=== PATIENT | female | born 1950 | race Caucasian/White ===

== ENCOUNTER 2019-12-04 11:31 | Observation (INO) | payer BC, MEDICARE ==
[2019-12-04] MEDS ORDERED: SODIUM CHLORIDE 0.9% 1,000 ML IV STA (11:46)
[2019-12-04 12:19] LABS: Basophils % (A) 0 %; Eosinophils # (A) 0.1 k/uL (0-0.7); Eosinophils % (A) 1 %; HCT 40.2 % (34.0-46.0); HGB 12.6 gm/dL (11.4-16.0); Hypochromasia Slight; Lymphocytes # (A) 1.9 k/uL (1.0-4.8); Lymphocytes % (A) 21 %; MCHC 31.3 g/dL (31.0-37.0); MCV 98.8 fL (80.0-100.0); Mean Platelet Volume 9.4; Monocytes # (A) 0.3 k/uL (0-1.0); Monocytes % (A) 4 %; Neutrophils # (A) 6.5 k/uL (1.3-7.7); Neutrophils % (A) 72 %; Platelet Count 211 k/uL (150-450); RBC 4.07 m/uL (3.80-5.40); RDW 13.1 % (11.5-15.5)
--- NOTE | 2019-12-04 12:24 | XR ---
EXAMINATION TYPE: XR chest 2V DATE OF EXAM: 12/04/2019 COMPARISON: NONE HISTORY: Difficulty breathing, shortness of breath TECHNIQUE: Frontal and lateral views of the chest are obtained. FINDINGS: There are prominent lung volumes with flattening the hemidiaphragms consistent with underly ing COPD. Aorta is dense. There is no focal air space opacity, pleural effusion, or pneumothorax see n. The cardiac silhouette size is within normal limits. The osseous structures are intact, postop change noted to the right humerus. IMPRESSION: No acute cardiopulmonary process.
[2019-12-04 12:34] LABS: ALT 21 U/L (4-34); AST 26 U/L (14-36); African American GFR (CKD) >90 (>60 ml/min/1.73 sqM); Albumin 3.7 g/dL (3.5-5.0); Alkaline Phosphatase 69 U/L (38-126); Anion Gap 5 mmol/L; Blood Urea Nitrogen 13 mg/dL (7-17); Calcium 8.8 mg/dL (8.4-10.2); Carbon Dioxide 28 mmol/L (22-30); Chloride 108 mmol/L (98-107); Glucose 96 mg/dL (74-99); Magnesium 2.2 mg/dL (1.6-2.3); Non-African American GFR(CKD) >90 (>60 ml/min/1.73 sqM); Potassium 5.1 mmol/L (3.5-5.1); Sodium 141 mmol/L (137-145); Total Bilirubin 0.6 mg/dL (0.2-1.3); Total Protein 6.2 g/dL (6.3-8.2)
[2019-12-04 12:39] LABS: INR 0.9 (<1.2); Prothrombin Time 9.9 sec (9.0-12.0)
[2019-12-04 12:48] LABS: Partial Thromboplastin Time 20.8 sec (22.0-30.0)
[2019-12-04] MEDS ORDERED: IPRATROPIUM-ALBUTEROL 3 ML NEB INHALATION STA (13:19)
--- NOTE | 2019-12-04 13:24 | ED ---
SOB HPI - General Chief Complaint: Shortness of Breath Stated Complaint: RONNIE Time Seen by Provider: 12/04/19 11:31 Source: patient, EMS, RN notes reviewed Mode of arrival: EMS Limitations: no limitations - History of Present Illness Initial Comments: This is a 69-year-old female history of COPD who presents with complaints of one week of progressively worsening shortness of breath. She states she ran out of her medications about a week ago as is gotten progressively more short of breath including exertional dyspnea. She describes the issues as chest tightness difficulty breathing exertional dyspnea. No overt fevers chills or sweats. MD Complaint: shortness of breath - Related Data Home Medications Medication Instructions Recorded Confirmed Aspirin EC [Ecotrin Low Dose] 81 mg PO DAILY 12/04/19 12/04/19 Atorvastatin [Lipitor] 80 mg PO HS 12/04/19 12/04/19 Carvedilol [Coreg] 6.25 mg PO BID 12/04/19 12/04/19 Enalapril Maleate [Vasotec] 2.5 mg PO DAILY 12/04/19 12/04/19 Fluticasone/Umeclidin/Vilanter 1 puff INHALATION RT-DAILY 12/04/19 12/04/19 [Trelegy Ellipta 100-62.5-25] Allergies Allergy/AdvReac Type Severity Reaction Status Date / Time acetaminophen [From Tylenol] Allergy Rash/Hives Verified 12/04/19 12:29 Review of Systems ROS Statement: Those systems with pertinent positive or pertinent negative responses have been documented in the HPI. ROS Other: All systems not noted in ROS Statement are negative. Past Medical History Past Medical History: Chest Pain / Angina, COPD, Myocardial Infarction ([place]) History of Any Multi-Drug Resistant Organisms: None Reported Past Surgical History: Breast Surgery, Section, Cholecystectomy, Orthopedic Surgery Past Psychological History: No Psychological Hx Reported Smoking Status: Current every day smoker, Light tobacco smoker, Second hand smoke exposure Past Alcohol Use History: None Reported Past Drug Use History: None Reported General Exam - General Exam Comments Initial Comments: This is a well-developed sec appearing female who is awake alert oriented 3 Limitations: no limitations General appearance: alert, anxious, in distress Head exam: Present: atraumatic, normocephalic, normal inspection Eye exam: Present: normal appearance, PERRL, EOMI. Absent: scleral icterus, conjunctival injection, periorbital swelling ENT exam: Present: mucous membranes dry Neck exam: Present: normal inspection, full ROM, other (No stridor JVD or bruits). Absent: tenderness, meningismus, lymphadenopathy Respiratory exam: Present: wheezes, accessory muscle use, decreased breath sounds. Absent: respiratory distress, rales, rhonchi, stridor Cardiovascular Exam: Present: regular rate, normal rhythm, normal heart sounds. Absent: systolic murmur, diastolic murmur, rubs, gallop, clicks GI/Abdominal exam: Present: soft, normal bowel sounds. Absent: distended, tenderness, guarding, rebound, rigid Extremities exam: Present: normal inspection, full ROM, normal capillary refill. Absent: tenderness, pedal edema, joint swelling, calf tenderness Back exam: Present: normal inspection Neurological exam: Present: alert, oriented X3, CN II-XII intact Psychiatric exam: Present: normal affect, normal mood Skin exam: Present: warm, dry, intact, normal color. Absent: rash Course Vital Signs 12/04/19 12/04/19 12/04/19 11:49 12:00 13:32 Temperature 97.6 F Pulse Rate 70 57 L Respiratory 20 20 18 Rate Blood Pressure 135/88 112/73 O2 Sat by Pulse 97 95 Oximetry - Reevaluation(s) Reevaluation #1: 12/04/19 13:24 The patient did say she has some relief from the medication rendered by [facility]. Medical Decision Making - Medical Decision Making Reevaluation the patient finds that she still dyspneic though somewhat improved. After discussion with her and family the patient be admitted I did discuss case with Dr. Eagle the presentation is consistent with a COPD exacerbation. - Lab Data Result diagrams: 12/04/19 12:00 12/04/19 12:00 Lab Results 12/04/19 12/04/19 12/04/19 Range/Units 12:00 12:00 12:00 WBC 9.0 (3.8-10.6) k/uL RBC 4.07 (3.80-5.40) m/uL Hgb 12.6 (11.4-16.0) gm/dL Hct 40.2 (34.0-46.0) % MCV 98.8 (80.0-100.0) fL MCH 31.0 (25.0-35.0) pg MCHC 31.3 (31.0-37.0) g/dL RDW 13.1 (11.5-15.5) % Plt Count 211 (150-450) k/uL Neutrophils % 72 % Lymphocytes % 21 % Monocytes % 4 % Eosinophils % 1 % Basophils % 0 % Neutrophils # 6.5 (1.3-7.7) k/uL Lymphocytes # 1.9 (1.0-4.8) k/uL Monocytes # 0.3 (0-1.0) k/uL Eosinophils # 0.1 (0-0.7) k/uL Basophils # 0.0 (0-0.2) k/uL Hypochromasia Slight PT 9.9 (9.0-12.0) sec INR 0.9 (<1.2) APTT 20.8 L (22.0-30.0) sec Sodium 141 (137-145) mmol/L Potassium 5.1 (3.5-5.1) mmol/L Chloride 108 H (98-107) mmol/L Carbon Dioxide 28 (22-30) mmol/L Anion Gap 5 mmol/L BUN 13 (7-17) mg/dL Creatinine 0.54 (0.52-1.04) mg/dL Est GFR (CKD-EPI)AfAm >90 (>60 ml/min/1.73 sqM) Est GFR (CKD-EPI)NonAf >90 (>60 ml/min/1.73 sqM) Glucose 96 (74-99) mg/dL Plasma Lactic Acid Rosendo (0.7-2.0) mmol/L Calcium 8.8 (8.4-10.2) mg/dL Magnesium 2.2 (1.6-2.3) mg/dL Total Bilirubin 0.6 (0.2-1.3) mg/dL AST 26 (14-36) U/L ALT 21 (4-34) U/L Alkaline Phosphatase 69 (38-126) U/L Troponin I (0.000-0.034) ng/mL NT-Pro-B Natriuret Pep pg/mL Total Protein 6.2 L (6.3-8.2) g/dL Albumin 3.7 (3.5-5.0) g/dL 07/12/04/19 12/04/19 Range/Units 12:00 12:00 12:00 WBC (3.8-10.6) k/uL RBC (3.80-5.40) m/uL Hgb (11.4-16.0) gm/dL Hct (34.0-46.0) % MCV (80.0-100.0) fL MCH (25.0-35.0) pg MCHC (31.0-37.0) g/dL RDW (11.5-15.5) % Plt Count (150-450) k/uL Neutrophils % % Lymphocytes % % Monocytes % % Eosinophils % % Basophils % % Neutrophils # (1.3-7.7) k/uL Lymphocytes # (1.0-4.8) k/uL Monocytes # (0-1.0) k/uL Eosinophils # (0-0.7) k/uL Basophils # (0-0.2) k/uL Hypochromasia PT (9.0-12.0) sec INR (<1.2) APTT (22.0-30.0) sec Sodium (137-145) mmol/L Potassium (3.5-5.1) mmol/L Chloride (98-107) mmol/L Carbon Dioxide (22-30) mmol/L Anion Gap mmol/L BUN (7-17) mg/dL Creatinine (0.52-1.04) mg/dL Est GFR (CKD-EPI)AfAm (>60 ml/min/1.73 sqM) Est GFR (CKD-EPI)NonAf (>60 ml/min/1.73 sqM) Glucose (74-99) mg/dL Plasma Lactic Acid Rosendo 1.0 (0.7-2.0) mmol/L Calcium (8.4-10.2) mg/dL Magnesium (1.6-2.3) mg/dL Total Bilirubin (0.2-1.3) mg/dL AST (14-36) U/L ALT (4-34) U/L Alkaline Phosphatase (38-126) U/L Troponin I <0.012 (0.000-0.034) ng/mL NT-Pro-B Natriuret Pep 417 pg/mL Total Protein (6.3-8.2) g/dL Albumin (3.5-5.0) g/dL - EKG Data -: EKG Interpreted by Me EKG shows normal: sinus rhythm (Sinus rhythm a 65. Interval 126 QRS 92 QT since QTC 396/411 low-voltage QRS evidence of old inferior changes) - Radiology Data Radiology results: report reviewed (I did review the imaging and report no acute findings.), image reviewed Disposition Clinical Impression: Acute exacerbation of chronic obstructive pulmonary disease Disposition: ADMITTED IP TO THIS HOSP Condition: Fair Referrals: Nonstaff,Physician [Primary Care Provider] - 1-2 days
[2019-12-04] MEDS: SODIUM CHLORIDE 0.9% 1,000 ML IV SCH (14:07)
--- NOTE | 2019-12-04 15:20 | P.HPIM ---
History of Present Illness H&P Date: 12/04/19 This is a 69-year-old female with past medical history noted below significant for underlying COPD who presented to the emergency room with worsening shortness of breath and dyspnea. Patient said that she woke up this morning with severe shortness of breath. She reported that she ran out of her inhalers a while ago and usually uses oxygen at home as needed. She did not check her oxygen level at home but used the oxygen for symptomatic relief. She had the oxygen up to 6 L with minimal relief. She denies any chest pain. She is having a nonproductive cough. No fevers or chills. No recent sick contact. Patient called EMS and was given IV Solu-Medrol in route. She was evaluated in the ER and was found to have acute COPD exacerbation and be placed on observation for further management. Patient reported feeling a lot better at the time of my evaluation. She denies any chest pain. She continued to smoke 3 cigarettes per day Review of Systems Review of system: 14 points review of systems were obtained and were negative except to what were mentioned in the HPI. Past Medical History Past Medical History: Asthma, Chest Pain / Angina, COPD, Hyperlipidemia, Hypertension, Myocardial Infarction (PR), Osteoarthritis (OA) Additional Past Medical History / Comment(s): Stress induced asthma, pt states told she had a PR approximately 5-7 yrs ago by EKG, cardiac cath 2019 in [place]-told one vessel 100% occluded, UTI, arthritis bilateral hands. Last Myocardial Infarction Date:: unkn History of Any Multi-Drug Resistant Organisms: None Reported Past Surgical History: Breast Surgery, Section, Cholecystectomy, Orthopedic Surgery Additional Past Surgical History / Comment(s): Benign L breast tumor removed, R arm fracture with hardware, cardiac cath 2019 in [place]-told one vessel 100% occluded. Past Anesthesia/Blood Transfusion Reactions: No Reported Reaction Smoking Status: Current every day smoker - Past Family History Father Family Medical History: CVA/TIA Additional Family Medical History / Comment(s): Father of a stroke at the age of 57yrs. Mother Family Medical History: Cancer, COPD Additional Family Medical History / Comment(s): Mother was a smoker. She of gallbladder cancer at the age of 86 yrs. Medications and Allergies Home Medications Medication Instructions Recorded Confirmed Type Aspirin EC [Ecotrin Low Dose] 81 mg PO DAILY 12/04/19 12/04/19 History Atorvastatin [Lipitor] 80 mg PO HS 12/04/19 12/04/19 History Carvedilol [Coreg] 6.25 mg PO BID 12/04/19 12/04/19 History Enalapril Maleate [Vasotec] 2.5 mg PO DAILY 12/04/19 12/04/19 History Fluticasone/Umeclidin/Vilanter 1 puff INHALATION RT-DAILY 12/04/19 12/04/19 History [Trelegy Ellipta 100-62.5-25] Allergies Allergy/AdvReac Type Severity Reaction Status Date / Time acetaminophen [From Tylenol] Allergy Rash/Hives Verified 12/04/19 12:29 Physical Exam Vitals: Vital Signs Temp Pulse Pulse Resp BP BP Pulse Ox 12/04/19 15:00 97.3 F L 66 16 133/72 97 12/04/19 14:04 98.1 F 61 20 130/75 97 12/04/19 13:55 66 12/04/19 13:46 59 L 12/04/19 13:32 57 L 18 112/73 95 12/04/19 12:00 20 12/04/19 11:49 97.6 F 70 20 135/88 97 Intake and Output 12/04/19 12/04/19 12/04/19 06:59 14:59 22:59 Other: Weight 65.317 kg General: The patient is awake and alert, in no distress Eye: there is normal conjunctiva bilaterally. Neck: The neck is supple, there is no JVD. Cardiovascular: Normal S1-S2, no S3-S4, no murmurs. Respiratory: Lungs slightly diminished with mild end expiratory wheezing Gastrointestinal: Abdomen is soft, nontender Musculoskeletal: There is no pedal edema. Neurological:. Speech is normal. Skin: Skin is warm and dry Results CBC & Chem 7: 12/04/19 12:00 12/04/19 12:00 Labs: Abnormal Lab Results - Last 24 Hours (Table) 12/04/19 12/04/19 Range/Units 12:00 12:00 APTT 20.8 L (22.0-30.0) sec Chloride 108 H (98-107) mmol/L Total Protein 6.2 L (6.3-8.2) g/dL Thrombosis Risk Factor Assmnt - Choose All That Apply Any of the Below Risk Factors Present?: Yes Each Factor Represents 1 point: Abnormal pulmonary function (COPD), Obesity (BMI >25), Serious lung disease incl. pneumonia (< 1month) Other Risk Factors: Yes Each Risk Factor Represents 2 Points: Age 61-74 years Other congenital or acquired thrombophilia - If yes, enter type in comment: No Thrombosis Risk Factor Assessment Total Risk Factor Score: 5 Thrombosis Risk Factor Assessment Level: High Risk Assessment and Plan Assessment: 1. Acute COPD exacerbation, I would continue IV Solu-Medrol 40 mg every 8 hours. DuoNeb's every 4 hours. Chest x-ray showed no acute findings. 2. Acute on chronic hypoxic respiratory failure: Wean off O2 as tolerated for O2 sats greater than 88% 3. Tobacco abuse: Counseled extensively to quit. 4. Hyperlipidemia on Lipitor 5. Essential hypertension: Blood pressure within acceptable range
[2019-12-04 16:34] LABS: Glucose,Whole Blood 136 mg/dL (75-99)
[2019-12-04] MEDS: methylPREDNISolone SOD SUCCI 40 MG/ML 1 ML VIAL IV SCH ×2 (17:12→23:49)
[2019-12-04] MEDS: carvediloL 6.25 MG TAB PO SCH (17:12)
[2019-12-04] MEDS ORDERED: methylPREDNISolone SOD SUCCI 125 MG/2 ML VIAL IV SCH (18:00)
[2019-12-04] MEDS: IPRATROPIUM-ALBUTEROL 3 ML NEB INHALATION SCH ×2 (19:02→19:08)
[2019-12-04 20:29] LABS: Glucose,Whole Blood 160 mg/dL (75-99)
[2019-12-04] MEDS ORDERED: ATORVASTATIN 80 MG TAB PO SCH (21:00)
[2019-12-05] MEDS: IPRATROPIUM-ALBUTEROL 3 ML NEB INHALATION PRN ×2 (00:25→03:30)
[2019-12-05] MEDS: SODIUM CHLORIDE 0.9% 1,000 ML IV SCH (04:07)
[2019-12-05 06:35] LABS: Glucose,Whole Blood 140 mg/dL (75-99)
[2019-12-05] MEDS: IPRATROPIUM-ALBUTEROL 3 ML NEB INHALATION SCH ×2 (07:17→11:26)
[2019-12-05] MEDS: methylPREDNISolone SOD SUCCI 40 MG/ML 1 ML VIAL IV SCH ×2 (07:34→07:47)
[2019-12-05] MEDS ORDERED: SYMBICORT 80-4.5 MCG INHALER INHALATION SCH (08:00)
[2019-12-05 08:27] VITALS: BP 111/58; RESP 20; TEMP 97.5
[2019-12-05] MEDS: carvediloL 6.25 MG TAB PO SCH (08:31)
[2019-12-05] MEDS ORDERED: lisinopriL 5 MG TAB PO SCH (09:00)
[2019-12-05] MEDS ORDERED: ASPIRIN 81 MG PO SCH (09:00)
--- NOTE | 2019-12-05 09:54 | P.DS ---
Providers Date of admission: 12/04/19 13:46 Expected date of discharge: 12/05/19 Attending physician: Maikol Sanchez Primary care physician: Physician Nonstaff Hospital Course: This is a 69-year-old female with past medical history noted below who presented to the emergency room for worsening shortness of breath. Patient was evaluated and placed on observation for further management of her medical problems noted below. 1. Acute COPD exacerbation, improved with IV steroids and bronchodilators. Chest x-ray showed no acute findings. Would finish 3 days course of prednisone at home. Prescription given for DuoNeb's to be used at home. 2. Acute on chronic hypoxic respiratory failure: On 2 L of oxygen at home as needed 3. Tobacco abuse: Counseled extensively to quit. 4. Hyperlipidemia on Lipitor 5. Essential hypertension: Blood pressure within acceptable range Patient will be discharged home in a stable condition. For further details about this hospitalization please refer to the electronic chart. Patient Condition at Discharge: Fair Plan - Discharge Summary Discharge Rx Participant: No New Discharge Prescriptions: New predniSONE [Deltasone] 40 mg PO DAILY #6 tab Ipratropium-Albuterol Nebulize [Duoneb 0.5 mg-3 mg/3 ml Soln] 3 ml INHALATION RT-QID PRN #120 ml PRN Reason: Shortness Of Breath Continue Enalapril Maleate [Vasotec] 2.5 mg PO DAILY Carvedilol [Coreg] 6.25 mg PO BID Aspirin EC [Ecotrin Low Dose] 81 mg PO DAILY Atorvastatin [Lipitor] 80 mg PO HS Fluticasone/Umeclidin/Vilanter [Trelegy Ellipta 100-62.5-25] 1 puff INHALATION RT-DAILY #1 device Discharge Medication List Aspirin EC [Ecotrin Low Dose] 81 mg PO DAILY 12/04/19 [History] Atorvastatin [Lipitor] 80 mg PO HS 12/04/19 [History] Carvedilol [Coreg] 6.25 mg PO BID 12/04/19 [History] Enalapril Maleate [Vasotec] 2.5 mg PO DAILY 12/04/19 [History] Fluticasone/Umeclidin/Vilanter [Trelegy Ellipta 100-62.5-25] 1 puff INHALATION RT-DAILY #1 device 12/05/19 [Rx] Ipratropium-Albuterol Nebulize [Duoneb 0.5 mg-3 mg/3 ml Soln] 3 ml INHALATION RT-QID PRN #120 ml 12/05/19 [Rx] predniSONE [Deltasone] 40 mg PO DAILY #6 tab 12/05/19 [Rx] Follow up Appointment(s)/Referral(s): Nonstaff,Physician [Primary Care Provider] - 1-2 days Discharge Disposition: HOME SELF-CARE
[2019-12-05 11:38] VITALS: PULSE 80
[2019-12-05 11:38] LABS: Glucose,Whole Blood 123 mg/dL (75-99)
== END 2019-12-05 12:35 | disposition home or self-care (01) ==
LOC: EC 11:31 → 1SOBS 13:46
PROVIDERS: ADMIT Internal Medicine; ATTEND Internal Medicine
DX: J44.1 Chronic obstructive pulmonary disease with (acute) exacerbation (principal); J96.21 Acute and chronic respiratory failure with hypoxia; I25.2 Old myocardial infarction; F17.210 Nicotine dependence, cigarettes, uncomplicated; E78.5 Hyperlipidemia, unspecified; I10 Essential (primary) hypertension; M19.042 Primary osteoarthritis, left hand; M19.041 Primary osteoarthritis, right hand; Z79.82 Long term (current) use of aspirin; Z79.899 Other long term (current) drug therapy; Z90.49 Acquired absence of other specified parts of digestive tract; E66.9 Obesity, unspecified; Z68.26 Body mass index [BMI] 26.0-26.9, adult; Z87.01 Personal history of pneumonia (recurrent); Z87.440 Personal history of urinary (tract) infections; Z80.0 Family history of malignant neoplasm of digestive organs; Z82.3 Family history of stroke; Z82.5 Family history of asthma and other chronic lower respiratory diseases; Z20.828 Contact with and (suspected) exposure to other viral communicable diseases
CPT/HCPCS: 96361 ×3; 96374; 96376 ×2; 99285; 36415; 94640 ×4; 93005; 83880; 80053; 83605; 83735; 84484; 85025; 85610; 85730; 71046; G0378 ×2; U0003; J2920 ×2

== ENCOUNTER 2023-04-30 15:12 | Inpatient (IN) | payer MEDICARE ==
[2023-04-30] MEDS ORDERED: IPRATROPIUM-ALBUTEROL 3 ML NEB INHALATION STA ×2 (15:27→16:42)
--- NOTE | 2023-04-30 15:27 | ED ---
SOB HPI - General Stated Complaint: RONNIE Time Seen by Provider: 04/30/23 15:14 Source: EMS, RN notes reviewed, old records reviewed, Caregiver Mode of arrival: EMS Limitations: no limitations - History of Present Illness Initial Comments: This is a 73-year-old female to the emergency department. for significant respiratory distress. Patient presents for cough congestion shortness of breath. Chest breath times one day with long history of difficulty breathing prior heart history and COPD. Patient states is to be admitted has stable felt feverish but no travel history or sick contacts. No current chest pain patient is a mildly poor story due to significant symptoms MD Complaint: shortness of breath, cough, chest pain, pain with inspiration, "a sthma attack", anxiety -: hour(s), unknown Severity: severe Severity scale (1-10): 9 Consistency: constant Improves With: nothing Worsens With: nothing Known History Of: COPD, congestive heart failure, recurrent pneumonia Context: recent URI, recent illness Associated Symptoms: chest pain, cough, sputum production, diaphoresis Treatments Prior to Arrival: none - Related Data Home Medications Medication Instructions Recorded Confirmed Atorvastatin [Lipitor] 80 mg PO DAILY 12/04/19 04/30/23 carvediloL [Coreg] 6.25 mg PO BID 12/04/19 04/30/23 Albuterol Inhaler [Ventolin Hfa 2 puff INHALATION RT-QID PRN 04/30/23 04/30/23 Inhaler] Fluticasone Nasal [place] [Flonase 1 - 2 spr EA NOSTRIL BID PRN 04/30/23 04/30/23 Nasal [place]] Fluticasone/Umeclidin/Vilanter 1 puff INHALATION RT-DAILY 04/30/23 04/30/23 [Trelegy Ellipta 100-62.5-25] Ipratropium-Albuterol Nebulize 3 ml INHALATION RT-Q4H PRN 04/30/23 04/30/23 [Duoneb 0.5 mg-3 mg/3 ml Soln] Previous Rx's Medication Instructions Recorded dexAMETHasone [Decadron] 6 mg PO DAILY #7 tablet 05/03/23 Allergies Allergy/AdvReac Type Severity Reaction Status Date / Time acetaminophen [From Tylenol] Allergy Rash/Hives Verified 04/30/23 17:45 Review of Systems ROS Statement: Those systems with pertinent positive or pertinent negative responses have been documented in the HPI. ROS Other: All systems not noted in ROS Statement are negative. Past Medical History Past Medical History: Asthma, Chest Pain / Angina, COPD, Hyperlipidemia, Hypertension, Myocardial Infarction ([place]), Osteoarthritis (OA) Additional Past Medical History / Comment(s): Stress induced asthma, pt states told she had a [place] approximately 5-7 yrs ago by EKG, cardiac cath 2019 in [place]-told one vessel 100% occluded, UTI, arthritis bilateral hands. Last Myocardial Infarction Date:: unkn History of Any Multi-Drug Resistant Organisms: None Reported Past Surgical History: Breast Surgery, Section, Cholecystectomy, Orthopedic Surgery Additional Past Surgical History / Comment(s): Benign L breast tumor removed, R arm fracture with hardware, cardiac cath 2019 in [place]-told one vessel 100% occluded. Past Anesthesia/Blood Transfusion Reactions: No Reported Reaction Past Psychological History: No Psychological Hx Reported Smoking Status: Current every day smoker - Past Family History Father Family Medical History: CVA/TIA Additional Family Medical History / Comment(s): Father of a stroke at the age of 57yrs. Mother Family Medical History: Cancer, COPD Additional Family Medical History / Comment(s): Mother was a smoker. She of gallbladder cancer at the age of 86 yrs. General Exam Limitations: no limitations General appearance: alert, anxious, in distress Head exam: Present: atraumatic, normocephalic, normal inspection Eye exam: Present: normal appearance, PERRL, EOMI. Absent: scleral icterus, conjunctival injection, periorbital swelling ENT exam: Present: normal exam, mucous membranes moist Neck exam: Present: normal inspection. Absent: tenderness, meningismus, lymphadenopathy Respiratory exam: Present: respiratory distress, wheezes, rales, accessory muscle use, decreased breath sounds, prolonged expiratory. Absent: rhonchi, stridor Cardiovascular Exam: Present: tachycardia, normal heart sounds. Absent: systolic murmur, diastolic murmur, rubs, gallop, clicks GI/Abdominal exam: Present: soft, normal bowel sounds. Absent: distended, tenderness, guarding, rebound, rigid Extremities exam: Present: normal inspection, full ROM, normal capillary refill. Absent: tenderness, pedal edema, joint swelling, calf tenderness Back exam: Present: normal inspection Neurological exam: Present: alert, oriented X3, CN II-XII intact Psychiatric exam: Present: normal affect, normal mood Skin exam: Present: warm, dry, intact, normal color. Absent: rash Course Vital Signs 04/30/23 04/30/23 04/30/23 15:13 15:23 15:30 Temperature 99 F Pulse Rate 114 H 114 H 115 H Respiratory 28 H Rate Blood Pressure 127/79 127/79 O2 Sat by Pulse 100 97 98 Oximetry 04/30/23 04/30/23 04/30/23 15:31 15:48 16:00 Temperature Pulse Rate 112 H 112 H 114 H Respiratory Rate Blood Pressure 123/95 O2 Sat by Pulse 95 Oximetry 04/30/23 04/30/23 04/30/23 16:30 17:00 17:30 Temperature Pulse Rate 111 H 102 H Respiratory Rate Blood Pressure O2 Sat by Pulse 96 96 97 Oximetry 04/30/23 04/30/23 04/30/23 18:00 18:30 19:00 Temperature Pulse Rate 105 H 99 94 Respiratory 22 Rate Blood Pressure 125/89 O2 Sat by Pulse 95 95 98 Oximetry 04/30/23 04/30/23 04/30/23 19:30 20:00 20:06 Temperature Pulse Rate 90 91 Respiratory Rate Blood Pressure O2 Sat by Pulse 96 Oximetry 04/30/23 04/30/23 04/30/23 20:30 21:00 21:30 Temperature Pulse Rate 83 72 71 Respiratory Rate Blood Pressure O2 Sat by Pulse Oximetry 04/30/23 05/01/23 05/01/23 22:00 04:00 06:55 Temperature Pulse Rate 73 84 66 Respiratory 15 18 Rate Blood Pressure 99/60 123/62 O2 Sat by Pulse 96 96 Oximetry 05/01/23 05/01/23 05/01/23 07:33 08:27 09:53 Temperature Pulse Rate 79 68 Respiratory 18 20 Rate Blood Pressure 120/64 140/60 O2 Sat by Pulse 96 96 97 Oximetry 05/01/23 10:37 Temperature Pulse Rate 68 Respiratory 16 Rate Blood Pressure 130/85 O2 Sat by Pulse 97 Oximetry - Reevaluation(s) Reevaluation #1: Medical record is reviewed Reevaluation #2: Patient symptoms are relatively unchanged Reevaluation #3: Patient informed of results and questions answered Reevaluation #4: 04/30/23 16:02 Was pt. sent in by a medical professional or institution (NICHOL Espinoza, [employer], urgent care, hospital, or snf...) When possible be specific @ -no Did you speak to anyone other than the patient for history (EMS, parent, family, police, friend...)? What history was obtained from this source @ -no Did you review nursing and triage notes (agree or disagree)? Why? @ -agree Are old charts reviewed (outside hosp., previous admission, EMS record, old EKG, old radiological studies, urgent care reports/EKG's, snf records)? Report findings @ -yes Differential Diagnosis (chest pain, altered mental status, abdominal pain women, abdominal pain men, vaginal bleeding, weakness, fever, dyspnea, syncope, headache, dizziness, GI bleed, back pain, seizure, CVA, palpatations, mental health, musculoskeletal)? @ -prior EKG interpreted by me (3pts min.). @ -yes X-rays interpreted by me (1pt min.). @ -yes coronavirus pneumonia CT interpreted by me (1pt min.). @ -no U/S interpreted by me (1pt. min.). @ -no What testing was considered but not performed or refused? (CT, X-rays, U/S, labs)? Why? @ -none What meds were considered but not given or refused? Why? @ -none Did you discuss the management of the patient with other professionals (gordo felder i.e. NICHOL Espinoza, [employer], lab, RT, psych nurse, rn social services, registered sales assistant, teacher, special assets officer, case operator)? Give summary @ -no Was smoking cessation discussed for >3mins.? @ -no Was critical care preformed (if so, how long)? @ -yes31 Were there social determinants of health that impacted care today? How? (Homelessness, low income, unemployed, alcoholism, drug addiction, transportation, low edu. Level, literacy, decrease access to med. care, detention, rehab)? @ -none Was there de-escalation of care discussed even if they declined (Discuss DNR or withdrawal of care, Hospice)? DNR status @ -no What co-morbidities impacted this encounter? (DM, HTN, Smoking, COPD, CAD, Cancer, CVA, ARF, Chemo, Hep., AIDS, mental health diagnosis, sleep apnea, morbid obesity)? @ -none Was patient admitted / discharged? Hospital course, mention meds given and route, prescriptions, significant lab abnormalities, going to OR and other pertinent info. @ - 73 female to the emergency department for evaluation of weakness found to have severe shortness of breath with coronavirus infection here in the ER on top of significant COPD with pressure distress. Patient be admitted for further evaluation management Discharged Undiagnosed new problem with uncertain prognosis? @ -no Drug Therapy requiring intensive monitoring for toxicity (Heparin, Nitro, Insulin, Cardizem)? @ -no Were any procedures done? @ -no Diagnosis/symptom? @ -Coronavirus COPD with respiratory distress Acute, or Chronic, or Acute on Chronic? @ -Acute Uncomplicated (without systemic symptoms) or Complicated (systemic symptoms)? @ -Complicated Side effects of treatment? @ -no Exacerbation, Progression, or Severe Exacerbation? @ -exacerbation Poses a threat to life or bodily function? How? (Chest pain, [place], [place], pneumonia, PE, COPD, DKA, ARF, appy, cholecystitis, CVA, Diverticulitis, Homicidal, Suicidal, threat to staff... and all critical care pts) @ -yes significant rust for a stress Reevaluation #5: Differential Chest Pain: Stable Angina, Unstable Angina, STEMI, NSTEMI Aortic Dissection, Pneumothorax, Musculoskeletal, Esophageal Spasm GERD, Cholecystitis, Pancreatitis, Zoster, this is not meant to be an all-inclusive list. - Consultations Consultation #1: Spoke with sound physicians agreeable admit this patient Medical Decision Making - Medical Decision Making 73 female to the emergency department for evaluation of weakness found to have severe shortness of breath with coronavirus infection here in the ER on top of significant COPD with pressure distress. Patient be admitted for further evaluation management - Lab Data Result diagrams: 05/03/23 08:31 05/03/23 08:31 Lab Results 04/30/23 04/30/23 04/30/23 Range/Units 14:36 15:45 15:45 WBC 11.6 H (3.8-10.6) k/uL RBC 4.48 (3.80-5.40) m/uL Hgb 13.7 (11.4-16.0) gm/dL Hct 42.3 (34.0-46.0) % MCV 94.4 (80.0-100.0) fL MCH 30.7 (25.0-35.0) pg MCHC 32.5 (31.0-37.0) g/dL RDW 13.1 (11.5-15.5) % Plt Count 271 (150-450) k/uL MPV 8.8 Neutrophils % 86 % Lymphocytes % 7 % Monocytes % 4 % Eosinophils % 2 % Basophils % 0 % Neutrophils # 10.0 H (1.3-7.7) k/uL Lymphocytes # 0.8 L (1.0-4.8) k/uL Monocytes # 0.5 (0-1.0) k/uL Eosinophils # 0.2 (0-0.7) k/uL Basophils # 0.0 (0-0.2) k/uL Hypochromasia PT 10.6 (10.0-12.5) sec INR 1.0 (<1.2) APTT 23.0 (22.0-30.0) sec D-Dimer (<0.60) mg/L FEU Sodium 137 (137-145) mmol/L Potassium 4.0 (3.5-5.1) mmol/L Chloride 103 (98-107) mmol/L Carbon Dioxide 24 (22-30) mmol/L Anion Gap 10 mmol/L BUN 12 (7-17) mg/dL Creatinine 0.66 (0.52-1.04) mg/dL Est GFR (CKD-EPI)AfAm >90 (>60 ml/min/1.73 sqM) Est GFR (CKD-EPI)NonAf 90 (>60 ml/min/1.73 sqM) Glucose 128 H (74-99) mg/dL Calcium 8.7 (8.4-10.2) mg/dL Phosphorus (2.5-4.5) mg/dL Magnesium 1.8 (1.6-2.3) mg/dL Total Bilirubin 0.4 (0.2-1.3) mg/dL Conjugated Bilirubin (0.0-0.3) mg/dL Unconjugated Bilirubin (0.0-1.1) mg/dL Delta Bilirubin (0.0-0.2) mg/dL AST 30 (14-36) U/L ALT 26 (4-34) U/L Alkaline Phosphatase 99 (38-126) U/L Lactate Dehydrogenase (120-246) U/L Troponin I (0.000-0.034) ng/mL C-Reactive Protein (<1.0) mg/dL NT-Pro-B Natriuret Pep 885 pg/mL Total Protein 6.8 (6.3-8.2) g/dL Albumin 3.8 (3.5-5.0) g/dL Procalcitonin (0.02-0.09) ng/mL Influenza Type A (PCR) (Not Detectd) Influenza Type B (PCR) (Not Detectd) RSV (PCR) (Not Detectd) SARS-CoV-2 (PCR) (Not Detectd) 04/30/23 04/30/23 04/30/23 Range/Units 15:45 15:45 18:11 WBC (3.8-10.6) k/uL RBC (3.80-5.40) m/uL Hgb (11.4-16.0) gm/dL Hct (34.0-46.0) % MCV (80.0-100.0) fL MCH (25.0-35.0) pg MCHC (31.0-37.0) g/dL RDW (11.5-15.5) % Plt Count (150-450) k/uL MPV Neutrophils % % Lymphocytes % % Monocytes % % Eosinophils % % Basophils % % Neutrophils # (1.3-7.7) k/uL Lymphocytes # (1.0-4.8) k/uL Monocytes # (0-1.0) k/uL Eosinophils # (0-0.7) k/uL Basophils # (0-0.2) k/uL Hypochromasia PT (10.0-12.5) sec INR (<1.2) APTT (22.0-30.0) sec D-Dimer (<0.60) mg/L FEU Sodium (137-145) mmol/L Potassium (3.5-5.1) mmol/L Chloride (98-107) mmol/L Carbon Dioxide (22-30) mmol/L Anion Gap mmol/L BUN (7-17) mg/dL Creatinine (0.52-1.04) mg/dL Est GFR (CKD-EPI)AfAm (>60 ml/min/1.73 sqM) Est GFR (CKD-EPI)NonAf (>60 ml/min/1.73 sqM) Glucose (74-99) mg/dL Calcium (8.4-10.2) mg/dL Phosphorus (2.5-4.5) mg/dL Magnesium (1.6-2.3) mg/dL Total Bilirubin (0.2-1.3) mg/dL Conjugated Bilirubin (0.0-0.3) mg/dL Unconjugated Bilirubin (0.0-1.1) mg/dL Delta Bilirubin (0.0-0.2) mg/dL AST (14-36) U/L ALT (4-34) U/L Alkaline Phosphatase (38-126) U/L Lactate Dehydrogenase (120-246) U/L Troponin I 0.017 (0.000-0.034) ng/mL C-Reactive Protein (<1.0) mg/dL NT-Pro-B Natriuret Pep pg/mL Total Protein (6.3-8.2) g/dL Albumin (3.5-5.0) g/dL Procalcitonin 0.06 (0.02-0.09) ng/mL Influenza Type A (PCR) Not Detected (Not Detectd) Influenza Type B (PCR) Not Detected (Not Detectd) RSV (PCR) Not Detected (Not Detectd) SARS-CoV-2 (PCR) Detected A (Not Detectd) 04/30/23 04/30/23 05/01/23 Range/Units 18:12 22:04 10:15 WBC 8.8 (3.8-10.6) k/uL RBC 3.95 (3.80-5.40) m/uL Hgb 12.0 (11.4-16.0) gm/dL Hct 38.5 (34.0-46.0) % MCV 97.4 (80.0-100.0) fL MCH 30.5 (25.0-35.0) pg MCHC 31.3 (31.0-37.0) g/dL RDW 13.1 (11.5-15.5) % Plt Count 232 (150-450) k/uL MPV 8.8 Neutrophils % 83 % Lymphocytes % 11 % Monocytes % 4 % Eosinophils % 1 % Basophils % 0 % Neutrophils # 7.3 (1.3-7.7) k/uL Lymphocytes # 1.0 (1.0-4.8) k/uL Monocytes # 0.4 (0-1.0) k/uL Eosinophils # 0.1 (0-0.7) k/uL Basophils # 0.0 (0-0.2) k/uL Hypochromasia Slight PT (10.0-12.5) sec INR (<1.2) APTT (22.0-30.0) sec D-Dimer (<0.60) mg/L FEU Sodium (137-145) mmol/L Potassium (3.5-5.1) mmol/L Chloride (98-107) mmol/L Carbon Dioxide (22-30) mmol/L Anion Gap mmol/L BUN (7-17) mg/dL Creatinine (0.52-1.04) mg/dL Est GFR (CKD-EPI)AfAm (>60 ml/min/1.73 sqM) Est GFR (CKD-EPI)NonAf (>60 ml/min/1.73 sqM) Glucose (74-99) mg/dL Calcium (8.4-10.2) mg/dL Phosphorus (2.5-4.5) mg/dL Magnesium (1.6-2.3) mg/dL Total Bilirubin (0.2-1.3) mg/dL Conjugated Bilirubin (0.0-0.3) mg/dL Unconjugated Bilirubin (0.0-1.1) mg/dL Delta Bilirubin (0.0-0.2) mg/dL AST (14-36) U/L ALT (4-34) U/L Alkaline Phosphatase (38-126) U/L Lactate Dehydrogenase (120-246) U/L Troponin I <0.012 <0.012 (0.000-0.034) ng/mL C-Reactive Protein (<1.0) mg/dL NT-Pro-B Natriuret Pep pg/mL Total Protein (6.3-8.2) g/dL Albumin (3.5-5.0) g/dL Procalcitonin (0.02-0.09) ng/mL Influenza Type A (PCR) (Not Detectd) Influenza Type B (PCR) (Not Detectd) RSV (PCR) (Not Detectd) SARS-CoV-2 (PCR) (Not Detectd) 05/01/23 05/01/23 05/02/23 Range/Units 10:15 10:15 08:26 WBC 18.6 H (3.8-10.6) k/uL RBC 3.98 (3.80-5.40) m/uL Hgb 12.5 (11.4-16.0) gm/dL Hct 38.8 (34.0-46.0) % MCV 97.6 (80.0-100.0) fL MCH 31.3 (25.0-35.0) pg MCHC 32.1 (31.0-37.0) g/dL RDW 13.2 (11.5-15.5) % Plt Count 269 (150-450) k/uL MPV 9.2 Neutrophils % 85 % Lymphocytes % 9 % Monocytes % 5 % Eosinophils % 0 % Basophils % 0 % Neutrophils # 15.8 H (1.3-7.7) k/uL Lymphocytes # 1.6 (1.0-4.8) k/uL Monocytes # 0.9 (0-1.0) k/uL Eosinophils # 0.1 (0-0.7) k/uL Basophils # 0.0 (0-0.2) k/uL Hypochromasia Moderate PT (10.0-12.5) sec INR (<1.2) APTT (22.0-30.0) sec D-Dimer 0.54 (<0.60) mg/L FEU Sodium 142 (137-145) mmol/L Potassium 4.1 (3.5-5.1) mmol/L Chloride 107 (98-107) mmol/L Carbon Dioxide 23 (22-30) mmol/L Anion Gap 12 mmol/L BUN 19 H (7-17) mg/dL Creatinine 0.57 (0.52-1.04) mg/dL Est GFR (CKD-EPI)AfAm >90 (>60 ml/min/1.73 sqM) Est GFR (CKD-EPI)NonAf >90 (>60 ml/min/1.73 sqM) Glucose 152 H (74-99) mg/dL Calcium 8.4 (8.4-10.2) mg/dL Phosphorus 2.9 (2.5-4.5) mg/dL Magnesium 2.1 (1.6-2.3) mg/dL Total Bilirubin 0.3 (0.2-1.3) mg/dL Conjugated Bilirubin 0.0 (0.0-0.3) mg/dL Unconjugated Bilirubin 0.0 (0.0-1.1) mg/dL Delta Bilirubin 0.3 H (0.0-0.2) mg/dL AST 33 (14-36) U/L ALT 28 (4-34) U/L Alkaline Phosphatase 78 (38-126) U/L Lactate Dehydrogenase 192 (120-246) U/L Troponin I (0.000-0.034) ng/mL C-Reactive Protein 3.2 H (<1.0) mg/dL NT-Pro-B Natriuret Pep pg/mL Total Protein 6.4 (6.3-8.2) g/dL Albumin 3.6 (3.5-5.0) g/dL Procalcitonin (0.02-0.09) ng/mL Influenza Type A (PCR) (Not Detectd) Influenza Type B (PCR) (Not Detectd) RSV (PCR) (Not Detectd) SARS-CoV-2 (PCR) (Not Detectd) 05/02/23 Range/Units 08:26 WBC (3.8-10.6) k/uL RBC (3.80-5.40) m/uL Hgb (11.4-16.0) gm/dL Hct (34.0-46.0) % MCV (80.0-100.0) fL MCH (25.0-35.0) pg MCHC (31.0-37.0) g/dL RDW (11.5-15.5) % Plt Count (150-450) k/uL MPV Neutrophils % % Lymphocytes % % Monocytes % % Eosinophils % % Basophils % % Neutrophils # (1.3-7.7) k/uL Lymphocytes # (1.0-4.8) k/uL Monocytes # (0-1.0) k/uL Eosinophils # (0-0.7) k/uL Basophils # (0-0.2) k/uL Hypochromasia PT (10.0-12.5) sec INR (<1.2) APTT (22.0-30.0) sec D-Dimer (<0.60) mg/L FEU Sodium 143 (137-145) mmol/L Potassium 4.1 (3.5-5.1) mmol/L Chloride 108 H (98-107) mmol/L Carbon Dioxide 26 (22-30) mmol/L Anion Gap 9 mmol/L BUN 20 H (7-17) mg/dL Creatinine 0.60 (0.52-1.04) mg/dL Est GFR (CKD-EPI)AfAm >90 (>60 ml/min/1.73 sqM) Est GFR (CKD-EPI)NonAf >90 (>60 ml/min/1.73 sqM) Glucose 105 H (74-99) mg/dL Calcium 8.6 (8.4-10.2) mg/dL Phosphorus (2.5-4.5) mg/dL Magnesium 2.3 (1.6-2.3) mg/dL Total Bilirubin (0.2-1.3) mg/dL Conjugated Bilirubin (0.0-0.3) mg/dL Unconjugated Bilirubin (0.0-1.1) mg/dL Delta Bilirubin (0.0-0.2) mg/dL AST (14-36) U/L ALT (4-34) U/L Alkaline Phosphatase (38-126) U/L Lactate Dehydrogenase (120-246) U/L Troponin I (0.000-0.034) ng/mL C-Reactive Protein (<1.0) mg/dL NT-Pro-B Natriuret Pep pg/mL Total Protein (6.3-8.2) g/dL Albumin (3.5-5.0) g/dL Procalcitonin (0.02-0.09) ng/mL Influenza Type A (PCR) (Not Detectd) Influenza Type B (PCR) (Not Detectd) RSV (PCR) (Not Detectd) SARS-CoV-2 (PCR) (Not Detectd) - EKG Data -: EKG Interpreted by Me (EKG is sinus tachycardia 113 MD 121 QRS 90 QTC 352) - Radiology Data Radiology results: report reviewed (Chest x-rays positive for COPD with likely a virus pneumonia), image reviewed Critical Care Time Critical Care Time: Yes Total Critical Care Time: 31 Disposition Clinical Impression: Acute exacerbation of chronic obstructive pulmonary disease, COVID, Congestive heart failure, Asthma with acute exacerbation, Coronavirus infection Disposition: ADMITTED IP TO THIS HOSP Condition: Serious Is patient prescribed a controlled substance at d/c from ED?: No Time of Disposition: 16:40
--- NOTE | 2023-04-30 15:50 | XR ---
EXAMINATION TYPE: XR chest 1V portable DATE OF EXAM: 04/30/2023 Comparison: 12/04/2019 Clinical History: 72-year-old female sob Findings: Antegrade intermedullary nail fixation visualized right humerus. Heart normal size. A few peripheral lung densities likely relating to overlying soft tissue. There is hyperinflation without ruben consol idation or pleural effusion. Impression: COPD. Hazy densities related to overlying soft tissue. No definite acute process.
[2023-04-30 16:18] LABS: Basophils % (A) 0 %; Eosinophils # (A) 0.2 k/uL (0-0.7); Eosinophils % (A) 2 %; HCT 42.3 % (34.0-46.0); HGB 13.7 gm/dL (11.4-16.0); Lymphocytes # (A) 0.8 k/uL (1.0-4.8); Lymphocytes % (A) 7 %; MCH 30.7 pg (25.0-35.0); MCHC 32.5 g/dL (31.0-37.0); MCV 94.4 fL (80.0-100.0); Mean Platelet Volume 8.8; Monocytes # (A) 0.5 k/uL (0-1.0); Monocytes % (A) 4 %; Neutrophils % (A) 86 %; Platelet Count 271 k/uL (150-450); RBC 4.48 m/uL (3.80-5.40); RDW 13.1 % (11.5-15.5); WBC 11.6 k/uL (3.8-10.6)
[2023-04-30] MEDS ORDERED: ONDANSETRON 4 MG/2 ML VIAL IVP PRN (16:41)
[2023-04-30] MEDS ORDERED: NALOXONE 0.4 MG/ML 1 ML VIAL IV PRN (16:41)
[2023-04-30] MEDS ORDERED: ACETAMINOPHEN TAB 325 MG TAB PO PRN (16:41)
[2023-04-30] MEDS ORDERED: MORPHINE SULFATE 4 MG/ML SYRINGE IV PRN (16:41)
[2023-04-30] MEDS ORDERED: DEXAMETHASONE SOD PHOSPHATE 10 MG/ML 1 ML VIAL IVP STA (16:42)
[2023-04-30] MEDS ORDERED: SODIUM CHLORIDE 0.9% 1,000 ML IV SCH (16:45)
[2023-04-30 17:11] LABS: Prothrombin Time 10.6 sec (10.0-12.5)
[2023-04-30] MEDS ORDERED: ALBUTEROL HFA INHALER INHALATION PRN (17:50)
--- NOTE | 2023-04-30 17:50 | P.HPIM ---
History of Present Illness H&P Date: 04/30/23 Chief Complaint: Dyspnea 72-year-old woman, active smoker, with medical history of COPD with chronic hypoxemic respiratory failure requiring 4 L of nasal cannula, hypertension, hyperlipidemia, CAD present for evaluation dyspnea. Patient says that yesterday she starts to develop chills, arthralgias and had significant shortness of breath despite use of her home nebulizers and inhalers. Based on the symptoms she presented for further evaluation. Patient denies fevers, nausea, vomiting, chest pain, palpitations, syncopal, abdominal pain, constipation, diarrhea, dysuria, numbness/weakness of extremity. In the emergency room, patient was afebrile, 127/79, heart rate 114, saturating well on 6 L of oxygen. CBC demonstrated leukocytosis to 11.6. Coags are unremarkable. Troponins 0.017. Covid was positive. EKG demonstrated sinus tachycardia with low voltage precordial leads. Chest x-ray shows hazy densities bilaterally, COPD with hyperinflation. All Systems reviewed and pertinent positives and negatives noted in HPI, all other symptoms are negative Gen: in no apparent distress, resting comfortably in bed Eyes: PERRL, no scleral injection or icterus HENT: normocephalic, atraumatic, good hearing acuity, moist mucous membranes Neck: no tracheal deviation, full range of motion Resp: Impaired air exchange with mild wheezing, breathing comfortably with no accessory muscle use, no tactile fremitus CVS: good distal perfusion x 4, no pitting edema GI: soft, NTTP, ND, no hepatosplenomegaly : no suprapubic tenderness, no CVAT, meyers catheter not present MSK: no clubbing, no cyanosis, no noted contractures of extremities Skin: no noted rashes, petechiae; temperature of skin is appropriate Neuro: moving all extremities without signs of weakness, CN II-XII intact Psych: cooperative, euthymic mood, insight and judgment intact Labs and images as above Assessment/plan: Acute on chronic hypoxemic respiratory failure COPD exacerbation Covid 19 pneumonia -Admit the patient to inpatient status -Start patient on dexamethasone 6 mg daily -Pulmonology consulted -Albuterol inhaler 4 times a day -Pro calcitonin ordered -D-dimer, LDH, CRP ordered for tomorrow Hypertension Hyperlipidemia CAD -Home medication reconciliation is pending medication history Patient is full code Past Medical History Past Medical History: Asthma, Chest Pain / Angina, COPD, Hyperlipidemia, Hypertension, Myocardial Infarction ([place]), Osteoarthritis (OA) Additional Past Medical History / Comment(s): Stress induced asthma, pt states told she had a MO approximately 5-7 yrs ago by EKG, cardiac cath 2019 in [facility]-told one vessel 100% occluded, UTI, arthritis bilateral hands. Last Myocardial Infarction Date:: unkn History of Any Multi-Drug Resistant Organisms: None Reported Past Surgical History: Breast Surgery, Section, Cholecystectomy, Orthopedic Surgery Additional Past Surgical History / Comment(s): Benign L breast tumor removed, R arm fracture with hardware, cardiac cath 2019 in [place]-told one vessel 100% occluded. Past Anesthesia/Blood Transfusion Reactions: No Reported Reaction Past Psychological History: No Psychological Hx Reported Smoking Status: Current every day smoker - Past Family History Father Family Medical History: CVA/TIA Additional Family Medical History / Comment(s): Father of a stroke at the age of 57yrs. Mother Family Medical History: Cancer, COPD Additional Family Medical History / Comment(s): Mother was a smoker. She of gallbladder cancer at the age of 86 yrs. Medications and Allergies Home Medications Medication Instructions Recorded Confirmed Type Aspirin EC [Ecotrin Low Dose] 81 mg PO DAILY 12/04/19 12/04/19 History Atorvastatin [Lipitor] 80 mg PO HS 12/04/19 12/04/19 History Enalapril Maleate [Vasotec] 2.5 mg PO DAILY 12/04/19 12/04/19 History carvediloL [Coreg] 6.25 mg PO BID 12/04/19 12/04/19 History Fluticasone/Vilanterol [Breo 1 inhalation PO Q24HR #1 inhaler 12/05/19 Rx Ellipta 100-25 Mcg Inhaler] Ipratropium-Albuterol Nebulize 3 ml INHALATION RT-QID PRN #120 ml 12/05/19 Rx [Duoneb 0.5 mg-3 mg/3 ml Soln] predniSONE [Deltasone] 40 mg PO DAILY #6 tab 12/05/19 Rx Allergies Allergy/AdvReac Type Severity Reaction Status Date / Time acetaminophen [From Tylenol] Allergy Rash/Hives Verified 12/04/19 12:29 Physical Exam Osteopathic Statement: *. No significant issues noted on an osteopathic structural exam other than those noted in the History and Physical/Consult. Vitals: Vital Signs Temp Pulse Resp BP Pulse Ox 04/30/23 15:48 112 H 04/30/23 15:31 112 H 04/30/23 15:13 99 F 114 H 28 H 127/79 100 Intake and Output 04/30/23 04/30/23 04/30/23 06:59 14:59 22:59 Other: Weight 81.647 kg Results CBC & Chem 7: 04/30/23 15:45 Labs: Abnormal Lab Results - Last 24 Hours (Table) 04/30/23 04/30/23 Range/Units 15:45 15:45 WBC 11.6 H (3.8-10.6) k/uL Neutrophils # 10.0 H (1.3-7.7) k/uL Lymphocytes # 0.8 L (1.0-4.8) k/uL SARS-CoV-2 (PCR) Detected A (Not Detectd)
[2023-04-30 18:04] LABS: ALT 26 U/L (4-34); AST 30 U/L (14-36); African American GFR (CKD) >90 (>60 ml/min/1.73 sqM); Albumin 3.8 g/dL (3.5-5.0); Alkaline Phosphatase 99 U/L (38-126); Anion Gap 10 mmol/L; Blood Urea Nitrogen 12 mg/dL (7-17); Calcium 8.7 mg/dL (8.4-10.2); Carbon Dioxide 24 mmol/L (22-30); Chloride 103 mmol/L (98-107); Glucose 128 mg/dL (74-99); Magnesium 1.8 mg/dL (1.6-2.3); Non-African American GFR(CKD) 90 (>60 ml/min/1.73 sqM); Sodium 137 mmol/L (137-145); Total Bilirubin 0.4 mg/dL (0.2-1.3); Total Protein 6.8 g/dL (6.3-8.2)
[2023-04-30 18:09] LABS: NT-Pro-B-Type Natriuretic Pept 885 pg/mL
[2023-04-30] MEDS ORDERED: ALBUTEROL HFA INHALER INHALATION STA (18:14)
[2023-04-30] MEDS: carvediloL 6.25 MG TAB PO SCH (19:18)
[2023-04-30] MEDS: TIOTROPIUM 2.5 MCG INHALER INHALATION SCH (19:34)
[2023-04-30] MEDS ORDERED: IBUPROFEN 600 MG TAB PO STA (19:53)
[2023-04-30] MEDS ORDERED: BUDESONIDE 0.25 MG/2 ML NEBU INHALATION SCH (20:00)
[2023-04-30] MEDS: ALBUTEROL HFA INHALER INHALATION SCH (20:03)
[2023-05-01] MEDS ORDERED: DEXAMETHASONE SOD PHOSPHATE 10 MG/ML 1 ML VIAL IVP SCH
[2023-05-01] MEDS: ATORVASTATIN 80 MG TAB PO SCH (07:49)
[2023-05-01] MEDS: DEXAMETHASONE SOD PHOSPHATE 10 MG/ML 1 ML VIAL IVP SCH (07:49)
[2023-05-01] MEDS: carvediloL 6.25 MG TAB PO SCH ×2 (07:49→16:19)
[2023-05-01] MEDS: ALBUTEROL HFA INHALER INHALATION SCH ×4 (08:19→21:21)
[2023-05-01] MEDS: TIOTROPIUM 2.5 MCG INHALER INHALATION SCH ×2 (08:20→08:25)
[2023-05-01] MEDS: SYMBICORT 80-4.5 MCG INHALER INHALATION SCH ×3 (08:20→21:23)
[2023-05-01 10:39] LABS: Basophils % (A) 0 %; Eosinophils # (A) 0.1 k/uL (0-0.7); Eosinophils % (A) 1 %; HCT 38.5 % (34.0-46.0); Hypochromasia Slight; Lymphocytes % (A) 11 %; MCH 30.5 pg (25.0-35.0); MCHC 31.3 g/dL (31.0-37.0); MCV 97.4 fL (80.0-100.0); Mean Platelet Volume 8.8; Monocytes # (A) 0.4 k/uL (0-1.0); Monocytes % (A) 4 %; Neutrophils # (A) 7.3 k/uL (1.3-7.7); Neutrophils % (A) 83 %; Platelet Count 232 k/uL (150-450); RBC 3.95 m/uL (3.80-5.40); RDW 13.1 % (11.5-15.5); WBC 8.8 k/uL (3.8-10.6)
--- NOTE | 2023-05-01 10:39 | P.PN ---
Subjective Progress Note Date: 05/01/23 No new complaints today. Still very quiet lung sounds and air movement. Stable O2 requirement. Gen: in no apparent distress, resting comfortably in bed Eyes: PERRL, no scleral injection or icterus HENT: normocephalic, atraumatic, good hearing acuity, moist mucous membranes Neck: no tracheal deviation, full range of motion Resp: Impaired air exchange with mild wheezing, breathing comfortably with no a ccessory muscle use, no tactile fremitus CVS: good distal perfusion x 4, no pitting edema GI: soft, NTTP, ND, no hepatosplenomegaly : no suprapubic tenderness, no CVAT, meyers catheter not present MSK: no clubbing, no cyanosis, no noted contractures of extremities Skin: no noted rashes, petechiae; temperature of skin is appropriate Neuro: moving all extremities without signs of weakness, CN II-XII intact Psych: cooperative, euthymic mood, insight and judgment intact Hospital Course: 72-year-old woman, active smoker, with medical history of COPD with chronic hypoxemic respiratory failure requiring 4 L of nasal cannula, hypertension, hyperlipidemia, CAD present for evaluation dyspnea. In the emergency room, patient was afebrile, 127/79, heart rate 114, saturating well on 6 L of oxygen. CBC demonstrated leukocytosis to 11.6. Coags are unremarkable. Troponins 0.017. Covid was positive. EKG demonstrated sinus tachycardia with low voltage precordial leads. Chest x-ray shows hazy densities bilaterally, COPD with hyperinflation. Assessment/plan: Acute on chronic hypoxemic respiratory failure COPD exacerbation Covid 19 pneumonia -Admit the patient to inpatient status -Start patient on dexamethasone 6 mg daily -Pulmonology consulted -Albuterol inhaler 4 times a day -Pro calcitonin 0.06, no need for abx -D-dimer, LDH, CRP ordered for tomorrow Hypertension Hyperlipidemia CAD -Home medication reconciliation is pending medication history Patient is full code Objective - Vital Signs Vital signs: Vital Signs Temp 99 F 04/30/23 15:13 Pulse 68 05/01/23 09:53 Resp 20 05/01/23 09:53 BP 140/60 05/01/23 09:53 Pulse Ox 97 05/01/23 09:53 FiO2 Intake & Output 04/30/23 05/01/23 05/01/23 18:59 06:59 18:59 Weight 81.647 kg - Labs CBC & Chem 7: 04/30/23 15:45 04/30/23 14:36 Labs: Abnormal Lab Results - Last 24 Hours (Table) 04/30/23 04/30/23 04/30/23 Range/Units 14:36 15:45 15:45 WBC 11.6 H (3.8-10.6) k/uL Neutrophils # 10.0 H (1.3-7.7) k/uL Lymphocytes # 0.8 L (1.0-4.8) k/uL Glucose 128 H (74-99) mg/dL SARS-CoV-2 (PCR) Detected A (Not Detectd)
[2023-05-01 10:52] LABS: ALT 28 U/L (4-34); AST 33 U/L (14-36); African American GFR (CKD) >90 (>60 ml/min/1.73 sqM); Albumin 3.6 g/dL (3.5-5.0); Alkaline Phosphatase 78 U/L (38-126); Anion Gap 12 mmol/L; Bilirubin, Delta 0.3 mg/dL (0.0-0.2); Blood Urea Nitrogen 19 mg/dL (7-17); C Reactive Protein 3.2 mg/dL (<1.0); Calcium 8.4 mg/dL (8.4-10.2); Carbon Dioxide 23 mmol/L (22-30); Chloride 107 mmol/L (98-107); Glucose 152 mg/dL (74-99); LDH 192 U/L (120-246); Magnesium 2.1 mg/dL (1.6-2.3); Non-African American GFR(CKD) >90 (>60 ml/min/1.73 sqM); Phosphorus 2.9 mg/dL (2.5-4.5); Potassium 4.1 mmol/L (3.5-5.1); Sodium 142 mmol/L (137-145); Total Bilirubin 0.3 mg/dL (0.2-1.3); Total Protein 6.4 g/dL (6.3-8.2)
[2023-05-01] MEDS ORDERED: IBUPROFEN 200 MG TAB PO PRN (10:56)
--- NOTE | 2023-05-01 11:38 | P.CNPUL ---
History of Present Illness Consult date: 05/01/23 Requesting physician: Nicko Amos Reason for consult: dyspnea, cough, COPD, hypoxemia, pneumonia, abnormal CXR/CT Chief complaint: Shortness of breath. History of present illness: Pulmonary consult dated 05/01/2023. 72-year-old female seen initially in the emergency department, room 16. The rafaela adams came in with complaints of shortness of breath, cough, chest congestion, and chest tightness with wheezing. She not been feeling well for about 3 or 4 days prior to admission. The patient does have an established history of COPD from previous tobacco use. She apparently used to see a slip cover seamstress in [facility]. The patient also has a history of angina, hyperlipidemia, hypertension, myocardial infarction, and osteoarthritis. The patient does continue to smoke cigarettes. In the emergency department, the patient was on 5 L of oxygen. She did test positive for coronavirus. Her pro-calcitonin level was 0.06. The patient was getting albuterol inhaler, Spiriva, Symbicort, and Decadron. She does use home O2, at 2 L. Her home medications include albuterol, albuterol nebulizer, and Trelegy. The patient's chest x-ray showed a pattern of diffuse haziness, particularly in the mid lung hand in lower lobes. The radiologist felt that there was not an acute process going on at this time. White count is 8.8, he will been 12, hematocrit 38.5, and platelet count was normal at 232,000. D-dimer was normal at 0.54. Sodium 142, potassium 4.1, chlorides 107, CO2 23, BUN 19, creatinine 0.57. Glucose is 152. N-terminal proBNP was 885. Pro-calcitonin level was normal at 0.06. Troponins were 0.017, less than 0.012, and less than 0.012. Review of Systems REVIEW OF SYSTEMS: CONSTITUTIONAL: Weakness and fatigue. NEUROLOGIC: [ Negative.] HEENT: [ Negative.] CARDIAC: [Negative.] PULMONARY: Shortness of breath, cough, chest congestion, wheezing. GI: Poor appetite. : [Negative.] RHEUMATOLOGIC: [ Negative.] IMMUNOLOGIC: [ Negative.] ENDOCRINE: [Negative. ] DERMATOLOGIC: [Negative.] Past Medical History Past Medical History: Asthma, Chest Pain / Angina, COPD, Hyperlipidemia, Hypertension, Myocardial Infarction ([place]), Osteoarthritis (OA) Additional Past Medical History / Comment(s): Stress induced asthma, pt states told she had a ID approximately 5-7 yrs ago by EKG, cardiac cath 2019 in [place]-told one vessel 100% occluded, UTI, arthritis bilateral hands. Last Myocardial Infarction Date:: unkn History of Any Multi-Drug Resistant Organisms: None Reported Past Surgical History: Breast Surgery, Section, Cholecystectomy, Orthopedic Surgery Additional Past Surgical History / Comment(s): Benign L breast tumor removed, R arm fracture with hardware, cardiac cath 2019 in [place]-told one vessel 100% occluded. Past Anesthesia/Blood Transfusion Reactions: No Reported Reaction Past Psychological History: No Psychological Hx Reported Smoking Status: Current every day smoker - Past Family History Father Family Medical History: CVA/TIA Additional Family Medical History / Comment(s): Father of a stroke at the age of 57yrs. Mother Family Medical History: Cancer, COPD Additional Family Medical History / Comment(s): Mother was a smoker. She of gallbladder cancer at the age of 86 yrs. Medications and Allergies Home Medications Medication Instructions Recorded Confirmed Type Atorvastatin [Lipitor] 80 mg PO DAILY 12/04/19 04/30/23 History carvediloL [Coreg] 6.25 mg PO BID 12/04/19 04/30/23 History Albuterol Inhaler [Ventolin Hfa 2 puff INHALATION RT-QID PRN 04/30/23 04/30/23 History Inhaler] Budesonide [Pulmicort] 0.25 mg INHALATION RT-Q4H 04/30/23 04/30/23 History Fluticasone Nasal [place] [Flonase 1 - 2 spr EA NOSTRIL BID PRN 04/30/23 04/30/23 History Nasal [place]] Fluticasone/Umeclidin/Vilanter 1 puff INHALATION RT-DAILY 04/30/23 04/30/23 History [Trelegy Ellipta 100-62.5-25] Ipratropium-Albuterol Nebulize 3 ml INHALATION RT-Q4H PRN 04/30/23 04/30/23 History [Duoneb 0.5 mg-3 mg/3 ml Soln] Allergies Allergy/AdvReac Type Severity Reaction Status Date / Time acetaminophen [From Tylenol] Allergy Rash/Hives Verified 04/30/23 17:45 Physical Exam Osteopathic Statement: *. No significant issues noted on an osteopathic structural exam other than those noted in the History and Physical/Consult. Vitals: Vital Signs Temp Pulse Resp BP Pulse Ox 05/01/23 10:37 68 16 130/85 97 05/01/23 09:53 68 20 140/60 97 05/01/23 08:27 96 05/01/23 07:33 79 18 120/64 96 05/01/23 06:55 66 18 123/62 96 05/01/23 04:00 84 15 99/60 96 04/30/23 22:00 73 04/30/23 21:30 71 04/30/23 21:00 72 04/30/23 20:30 83 04/30/23 20:06 96 04/30/23 20:00 91 04/30/23 19:30 90 04/30/23 19:00 94 98 04/30/23 18:30 99 95 04/30/23 18:00 105 H 22 125/89 95 04/30/23 17:30 102 H 97 04/30/23 17:00 96 04/30/23 16:30 111 H 96 04/30/23 16:00 114 H 123/95 95 04/30/23 15:48 112 H 04/30/23 15:31 112 H 04/30/23 15:30 115 H 127/79 98 04/30/23 15:23 114 H 97 04/30/23 15:13 99 F 114 H 28 H 127/79 100 Intake and Output 04/30/23 05/01/23 05/01/23 22:59 06:59 14:59 Other: Weight 81.647 kg No acute distress, oriented 3. Was on 5 L nasal cannula. No audible wheezing, use of accessory muscles, or conversational dyspnea. HEENT examination is grossly unremarkable. Mucous membranes are moist. No oral lesions. Neck supple. Full range of motion. No adenopathy thyromegaly or neck vein distention. Cardiovascular examination reveals regular rhythm rate. S1-S2 normal. No S3 or S4. No discernible murmur noted. Heart sounds are distant. Heart rate 70 bpm. Lungs reveal mostly clear breath sounds. Scattered rhonchi are noted. No wheezes. Minimal basilar crackles. 4 L saturation is 98%. Abdomen soft bowel sounds are heard. No masses or tenderness. Extremities are intact. No cyanosis clubbing or edema. Skin is without rash or lesion. Neurologic examination is brief but nonfocal. Results - Laboratory Findings CBC and BMP: 05/01/23 10:15 05/01/23 10:15 PT/INR, D-dimer PT 10.6 sec (10.0-12.5) 04/30/23 15:45 INR 1.0 (<1.2) 04/30/23 15:45 D-Dimer 0.54 mg/L FEU (<0.60) 05/01/23 10:15 Abnormal lab findings: Abnormal Labs 04/30/23 04/30/23 04/30/23 14:36 15:45 15:45 WBC 11.6 H Neutrophils # 10.0 H Lymphocytes # 0.8 L BUN Glucose 128 H Delta Bilirubin C-Reactive Protein SARS-CoV-2 (PCR) Detected A 05/01/23 10:15 WBC Neutrophils # Lymphocytes # BUN 19 H Glucose 152 H Delta Bilirubin 0.3 H C-Reactive Protein 3.2 H SARS-CoV-2 (PCR) - Diagnostic Findings Chest x-ray: image reviewed Assessment and Plan Assessment: Acute hypoxemic respiratory failure, likely secondary to COPD exacerbation, and likely complicated by coronavirus infection, and/or coronavirus associated pneumonia. History of ongoing tobacco use with nicotine addiction. History of hypertension. History of hyperlipidemia. History of previous myocardial infarction. History of osteoarthritis. Plan: Plan dated 05/01/2023. The patient is seen today in the emergency department, room 16. She's currently on between 4 to 5 L by nasal cannula. Her pro-calcitonin level was 0.06. Currently, she is on an albuterol inhaler, Spiriva inhaler, Symbicort inhaler, and Decadron. Labs, x-rays, medications are reviewed. The patient does use home oxygen at 2 L. The patient used to follow with a slip cover seamstress, in [place], [place]. The patient does continue to smoke, and is counseled about the importance of smoking cessation. We will continue to follow make recommendations along the way. Prognosis is certainly guarded. Time with Patient: Greater than 30
[2023-05-02] MEDS: carvediloL 6.25 MG TAB PO SCH ×2 (06:40→17:17)
[2023-05-02] MEDS: ALBUTEROL HFA INHALER INHALATION SCH ×4 (08:45→21:39)
[2023-05-02] MEDS: TIOTROPIUM 2.5 MCG INHALER INHALATION SCH (08:48)
[2023-05-02] MEDS: SYMBICORT 80-4.5 MCG INHALER INHALATION SCH ×2 (08:48→21:39)
[2023-05-02 09:08] LABS: Basophils % (A) 0 %; Eosinophils # (A) 0.1 k/uL (0-0.7); Eosinophils % (A) 0 %; HCT 38.8 % (34.0-46.0); HGB 12.5 gm/dL (11.4-16.0); Hypochromasia Moderate; Lymphocytes # (A) 1.6 k/uL (1.0-4.8); Lymphocytes % (A) 9 %; MCH 31.3 pg (25.0-35.0); MCHC 32.1 g/dL (31.0-37.0); MCV 97.6 fL (80.0-100.0); Mean Platelet Volume 9.2; Monocytes # (A) 0.9 k/uL (0-1.0); Monocytes % (A) 5 %; Neutrophils # (A) 15.8 k/uL (1.3-7.7); Neutrophils % (A) 85 %; Platelet Count 269 k/uL (150-450); RBC 3.98 m/uL (3.80-5.40); RDW 13.2 % (11.5-15.5); WBC 18.6 k/uL (3.8-10.6)
[2023-05-02] MEDS: DEXAMETHASONE SOD PHOSPHATE 10 MG/ML 1 ML VIAL IVP SCH (09:22)
[2023-05-02] MEDS: ATORVASTATIN 80 MG TAB PO SCH (09:22)
[2023-05-02 10:56] LABS: African American GFR (CKD) >90 (>60 ml/min/1.73 sqM); Anion Gap 9 mmol/L; Blood Urea Nitrogen 20 mg/dL (7-17); Calcium 8.6 mg/dL (8.4-10.2); Carbon Dioxide 26 mmol/L (22-30); Chloride 108 mmol/L (98-107); Glucose 105 mg/dL (74-99); Magnesium 2.3 mg/dL (1.6-2.3); Non-African American GFR(CKD) >90 (>60 ml/min/1.73 sqM); Potassium 4.1 mmol/L (3.5-5.1); Sodium 143 mmol/L (137-145)
--- NOTE | 2023-05-02 12:35 | P.PN ---
Subjective Progress Note Date: 05/02/23 Hospital Course: 72-year-old woman, active smoker, with medical history of COPD with chronic hypoxemic respiratory failure requiring 2 L of nasal cannula, hypertension, hyperlipidemia, CAD present for evaluation dyspnea. In the emergency room, patient was afebrile, 127/79, heart rate 114, saturating well on 6 L of oxygen. CBC demonstrated leukocytosis to 11.6. Coags are unremarkable. Troponins 0.017. Covid was positive. EKG demonstrated sinus tachycardia with low voltage precordial leads. Chest x-ray shows hazy densities bilaterally, COPD with hyperinflation. Patient started on IV steroids, bronchodilators. Pulmonology consulted. Subjective: Patient seen and examined at bedside. No acute events overnight. Shortness of breath is slightly improving, does have significant cough. Did get a little lightheaded when she got up yesterday. Pertinent positives and negatives as discussed above, a complete review of systems was performed and all other systems are negative. Vitals Signs Reviewed. General: nontoxic, no distress, appears at stated age Derm: warm, dry Head: atraumatic, normocephalic, symmetric Eyes: EOMI, no lid lag, anicteric sclera Mouth: no lip lesion, mucus membranes moist Cardiovascular: S1S2 reg, no murmur Lungs: Reduced breath sounds bilaterally at the bases, no wheezing , no accessory muscle use on supplemental oxygen Abdominal: soft, nontender to palpation, no guarding, no appreciable organomegaly Ext: no gross muscle atrophy, no edema, no contractures Neuro: CN II-XI grossly intact, no focal neuro deficits Psych: Alert, oriented, appropriate affect Data Reviewed Today: Pertinent Labs: WBC 18.6, creatinine 0.6, magnesium 2.3 Imaging: No new imaging Assessment and Plan: Observation status changed to inpatient. Acute on chronic hypoxemic respiratory failure COPD exacerbation Covid 19 pneumonia Nicotine dependence Leukocytosis, likely steroid-induced -Continue to wean oxygen -Continue IV Decadron 6 mg daily, monitor mental status -Pulmonology following -Albuterol inhaler 4 times a day, scheduled and as needed -Pro calcitonin 0.06, no need for abx -Repeat CBC tomorrow Hypertension Hyperlipidemia CAD -Continue Coreg 6.25 mg twice a day, atorvastatin 80 mg daily DVT ppx: Lovenox Code status: DNR/DNI Anticipated discharge place: Home Anticipated discharge time: " Objective - Vital Signs Vital signs: Vital Signs Temp 97.8 F 05/01/23 16:16 Pulse 69 05/02/23 11:50 Resp 16 05/02/23 11:50 BP 151/67 05/02/23 11:50 Pulse Ox 94 L 05/02/23 11:50 FiO2 Intake & Output 05/01/23 05/02/23 05/02/23 18:59 06:59 18:59 Intake Total 236 240 Output Total 400 Balance 236 -160 Weight 81.647 kg Intake: Oral 236 240 Output: Urine 400 Other: Voiding Method Bedside Commode Bedside Commode Bedside Commode # Voids 2 2 1 - Labs CBC & Chem 7: 05/02/23 08:26 05/02/23 08:26 Labs: Abnormal Lab Results - Last 24 Hours (Table) 05/02/23 05/02/23 Range/Units 08:26 08:26 WBC 18.6 H (3.8-10.6) k/uL Neutrophils # 15.8 H (1.3-7.7) k/uL Chloride 108 H (98-107) mmol/L BUN 20 H (7-17) mg/dL Glucose 105 H (74-99) mg/dL
--- NOTE | 2023-05-02 16:08 | P.PN ---
Subjective Progress Note Date: 05/02/23 72-year-old female seen initially in the emergency department, room 16. The patient came in with complaints of shortness of breath, cough, chest congestion, and chest tightness with wheezing. She not been feeling well for about 3 or 4 days prior to admission. The patient does have an established history of COPD from previous tobacco use. She apparently used to see a wood grinder operator in [facility] [place]. The patient also has a history of angina, hyperlipidemia, hypertension, myocardial infarction, and osteoarthritis. The patient does continue to smoke cigarettes. In the emergency department, the patient was on 5 L of oxygen. She did test positive for coronavirus. Her pro-calcitonin level was 0.06. The patient was getting albuterol inhaler, Spiriva, Symbicort, and Decadron. She does use home O2, at 2 L. Her home medications include albuterol, albuterol nebulizer, and Trelegy. The patient's chest x-ray showed a pattern of diffuse haziness, particularly in the mid lung hand in lower lobes. The radiologist felt that there was not an acute process going on at this time. White count is 8.8, he will been 12, hematocrit 38.5, and platelet count was normal at 232,000. D-dimer was normal at 0.54. Sodium 142, potassium 4.1, chlorides 107, CO2 23, BUN 19, creatinine 0.57. Glucose is 152. N-terminal proBNP was 885. Pro-calcitonin level was normal at 0.06. Troponins were 0.017, less than 0.012, and less than 0.012. On today's evaluation of 05/02/2023, seeing the patient for a follow-up. The patient is known to have COPD and she is maintain on oxygen on outpatient basis at 2 L/m nasal cannula. Currently she is on 3 L. No previous Covid 19 infection and the patient received origin vaccination. She is currently doing well. Energy level is improved compared to yesterday. She is currently on Decadron 6 mg IV every 24 hours. She is also on Spiriva and using albuterol HFA [id number]. No significant cough or sputum production. No pleurisy. No hemoptysis. Labs from today shows a white cell count of 18.6 with a hemoglobin 12.5, BUN is at 20 mg and 0.6 and a sodium level is at 143. D-dimer was at 0.5 and the patient had a pro-calcitonin level of 0.06. Objective - Vital Signs Vital signs: Vital Signs Temp 97.8 F 05/01/23 16:16 Pulse 69 05/02/23 11:50 Resp 16 05/02/23 11:50 BP 151/67 05/02/23 11:50 Pulse Ox 94 L 05/02/23 11:50 FiO2 Intake & Output 05/01/23 05/02/23 05/02/23 18:59 06:59 18:59 Intake Total 236 240 Output Total 400 Balance 236 -160 Weight 81.647 kg Intake: Oral 236 240 Output: Urine 400 Other: Voiding Method Bedside Commode Bedside Commode Bedside Commode # Voids 2 2 1 - Exam No acute distress, oriented 3. Was on 3 L nasal cannula. No audible wheezing, use of accessory muscles, or conversational dyspnea. HEENT examination is grossly unremarkable. Mucous membranes are moist. No oral lesions. Neck supple. Full range of motion. No adenopathy thyromegaly or neck vein distention. Cardiovascular examination reveals regular rhythm rate. S1-S2 normal. No S3 or S4. No discernible murmur noted. Heart sounds are distant. Lungs reveal mostly clear breath sounds. Scattered rhonchi are noted. No wheezes. Minimal basilar crackles. Abdomen soft bowel sounds are heard. No masses or tenderness. Extremities are intact. No cyanosis clubbing or edema. Skin is without rash or lesion. - Labs CBC & Chem 7: 05/02/23 08:26 05/02/23 08:26 Labs: Abnormal Lab Results - Last 24 Hours (Table) 05/02/23 05/02/23 Range/Units 08:26 08:26 WBC 18.6 H (3.8-10.6) k/uL Neutrophils # 15.8 H (1.3-7.7) k/uL Chloride 108 H (98-107) mmol/L BUN 20 H (7-17) mg/dL Glucose 105 H (74-99) mg/dL Assessment and Plan Plan: Acute hypoxemic respiratory failure, likely secondary to COPD exacerbation, and likely complicated by coronavirus infection, and/or coronavirus associated pneumonia. The patient is currently on 3 L of oxygen by nasal cannula. The patient is known to have chronic hypoxic respiratory failure and she has limited on oxygen at 3 L/m nasal cannula Acute COPD exacerbation secondary to Covid 19 infection. No clear evidence of pneumonia. Chronic hypoxic respiratory failure maintained on oxygen 2 L/m nasal cannula History of ongoing tobacco use with nicotine addiction. History of hypertension. History of hyperlipidemia. History of previous myocardial infarction. History of osteoarthritis. Leukocytosis, to be monitored, likely reactive, could be related to steroids Plan: Clinically improving Continue Decadron Monitor white cell count Wean down FiO2 to baseline of 2 L Continue Spiriva and Symbicort Continue albuterol HFA Increase mobility Continue Lovenox for DVT prophylaxis We'll continue to follow
[2023-05-02 23:54] VITALS: RESP 16; TEMP 98
[2023-05-03] MEDS: carvediloL 6.25 MG TAB PO SCH (06:39)
[2023-05-03] MEDS: SYMBICORT 80-4.5 MCG INHALER INHALATION SCH (08:05)
[2023-05-03] MEDS: ALBUTEROL HFA INHALER INHALATION SCH ×2 (08:05→11:32)
[2023-05-03] MEDS: TIOTROPIUM 2.5 MCG INHALER INHALATION SCH (08:36)
[2023-05-03] MEDS ORDERED: ENOXAPARIN 40 MG/0.4 ML SYRINGE SQ SCH (09:00)
[2023-05-03] MEDS: DEXAMETHASONE SOD PHOSPHATE 10 MG/ML 1 ML VIAL IVP SCH (09:03)
[2023-05-03] MEDS: ATORVASTATIN 80 MG TAB PO SCH (09:04)
[2023-05-03 10:03] LABS: Basophils # (A) 0.1 k/uL (0-0.2); Basophils % (A) 1 %; Eosinophils % (A) 0 %; HCT 42.5 % (34.0-46.0); Hypochromasia Marked; Lymphocytes # (A) 1.8 k/uL (1.0-4.8); Lymphocytes % (A) 12 %; MCH 30.5 pg (25.0-35.0); MCHC 30.6 g/dL (31.0-37.0); MCV 99.6 fL (80.0-100.0); Mean Platelet Volume 10.1; Monocytes # (A) 0.8 k/uL (0-1.0); Monocytes % (A) 6 %; Neutrophils # (A) 11.5 k/uL (1.3-7.7); Neutrophils % (A) 80 %; Platelet Count 224 k/uL (150-450); RBC 4.26 m/uL (3.80-5.40); RDW 13.3 % (11.5-15.5); WBC 14.5 k/uL (3.8-10.6)
[2023-05-03 10:05] LABS: African American GFR (CKD) >90 (>60 ml/min/1.73 sqM); Anion Gap 9 mmol/L; Blood Urea Nitrogen 21 mg/dL (7-17); Calcium 8.6 mg/dL (8.4-10.2); Carbon Dioxide 29 mmol/L (22-30); Chloride 103 mmol/L (98-107); Glucose 77 mg/dL (74-99); Non-African American GFR(CKD) >90 (>60 ml/min/1.73 sqM); Potassium 4.1 mmol/L (3.5-5.1); Sodium 141 mmol/L (137-145)
--- NOTE | 2023-05-03 11:29 | P.DS ---
Providers Date of admission: 05/02/23 12:08 Expected date of discharge: 05/03/23 Attending physician: Nicko Amos MD Consults: 04/30/23 17:48 Consult Physician Routine Consulting Provider: Jackson Lewis Consult Reason/Comments: COPD, Covid Do you want consulting provider notified?: Yes Primary care physician: Jackson Valencia Hospital Course: Discharge Diagnosis: Acute on chronic hypoxemic respiratory failure COPD exacerbation Covid 19 pneumonia Nicotine dependence Leukocytosis, likely steroid-induced Hypertension Hyperlipidemia CAD Hospital Course: 72-year-old woman, active smoker, with medical history of COPD with chronic hypoxemic respiratory failure requiring 2 L of nasal cannula, hypertension, hyperlipidemia, CAD present for evaluation dyspnea. In the emergency room, patient was afebrile, 127/79, heart rate 114, saturating well on 6 L of oxygen. CBC demonstrated leukocytosis to 11.6. Coags are unremarkable. Troponins 0.017. Covid was positive. EKG demonstrated sinus tachycardia with low voltage precordial leads. Chest x-ray shows hazy densities bilaterally, COPD with hyperinflation. Patient started on steroids, bronchodilators. Pulmonology consulted. She is back to her home oxygen requirements. Follow-up with PCP and pulmonology. Patient seen and examined at bedside. Vital signs reviewed and stable. General: nontoxic, no distress, appears at stated age Derm: warm, dry Head: atraumatic, normocephalic, symmetric Eyes: EOMI, no lid lag, anicteric sclera Mouth: no lip lesion, mucus membranes moist Cardiovascular: S1S2 reg, no murmur Lungs: Reduced breath sounds bilaterally at the bases, no wheezing , no accessory muscle use on supplemental oxygen Abdominal: soft, nontender to palpation, no guarding, no appreciable o rganomegaly Ext: no gross muscle atrophy, no edema, no contractures Neuro: CN II-XI grossly intact, no focal neuro deficits Psych: Alert, oriented, appropriate affect A total of 33 minutes of time were spent preparing this complex discharge summary. Patient was discharged on 05/03/23 at 1126. Patient Condition at Discharge: Stable Plan - Discharge Summary Discharge Rx Participant: No New Discharge Prescriptions: New dexAMETHasone [Decadron] 6 mg PO DAILY #7 tablet Continue carvediloL [Coreg] 6.25 mg PO BID Atorvastatin [Lipitor] 80 mg PO DAILY Fluticasone Nasal Salyer [Flonase Nasal Salyer] 1 - 2 spr EA NOSTRIL BID PRN PRN Reason: Allergy Symptoms Albuterol Inhaler [Ventolin Hfa Inhaler] 2 puff INHALATION RT-QID PRN PRN Reason: Shortness Of Breath Fluticasone/Umeclidin/Vilanter [Trelegy Ellipta 100-62.5-25] 1 puff INHALATION RT-DAILY Ipratropium-Albuterol Nebulize [Duoneb 0.5 mg-3 mg/3 ml Soln] 3 ml INHALATION RT-Q4H PRN PRN Reason: Shortness Of Breath Discontinued Budesonide [Pulmicort] 0.25 mg INHALATION RT-Q4H Discharge Medication List Atorvastatin [Lipitor] 80 mg PO DAILY 12/04/19 [History] carvediloL [Coreg] 6.25 mg PO BID 12/04/19 [History] Albuterol Inhaler [Ventolin Hfa Inhaler] 2 puff INHALATION RT-QID PRN 04/30/23 [History] Fluticasone Nasal Salyer [Flonase Nasal Salyer] 1 - 2 spr EA NOSTRIL BID PRN 04/30/23 [History] Fluticasone/Umeclidin/Vilanter [Trelegy Ellipta 100-62.5-25] 1 puff INHALATION RT-DAILY 04/30/23 [History] Ipratropium-Albuterol Nebulize [Duoneb 0.5 mg-3 mg/3 ml Soln] 3 ml INHALATION RT-Q4H PRN 04/30/23 [History] dexAMETHasone [Decadron] 6 mg PO DAILY #7 tablet 05/03/23 [Rx] Follow up Appointment(s)/Referral(s): Jackson Valencia MD [Primary Care Provider] - 1-2 days Jackson Lewis DO [Doctor of Osteopathic Medicine] - 1 Week Patient Instructions/Handouts: COVID-19 (Coronavirus Disease 2019) (DC), COPD (Chronic Obstructive Pulmonary Disease) (DC) Activity/Diet/Wound Care/Special Instructions: 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 Discharge Disposition: HOME SELF-CARE
--- NOTE | 2023-05-03 12:59 | P.PN ---
Subjective Progress Note Date: 05/03/23 72-year-old female seen initially in the emergency department, room 16. The patient came in with complaints of shortness of breath, cough, chest congestion, and chest tightness with wheezing. She not been feeling well for about 3 or 4 days prior to admission. The patient does have an established history of COPD from previous tobacco use. 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 The patient also has a history of angina, hyperlipidemia, hypertension, myocardial infarction, and osteoarthritis. The patient does continue to smoke cigarettes. In the emergency department, the patient was on 5 L of oxygen. She did test positive for coronavirus. Her pro-calcitonin level was 0.06. The patient was getting albuterol inhaler, Spiriva, Symbicort, and Decadron. She does use home O2, at 2 L. Her home medications include albuterol, albuterol nebulizer, and Trelegy. The patient's chest x-ray showed a pattern of diffuse haziness, particularly in the mid lung hand in lower lobes. The radiologist felt that there was not an acute process going on at this time. White count is 8.8, he will been 12, hematocrit 38.5, and platelet count was normal at 232,000. D-dimer was normal at 0.54. Sodium 142, potassium 4.1, chlorides 107, CO2 23, BUN 19, creatinine 0.57. Glucose is 152. N-terminal proBNP was 885. Pro-calcitonin level was normal at 0.06. Troponins were 0.017, less than 0.012, and less than 0.012. On today's evaluation of 05/02/2023, seeing the patient for a follow-up. The patient is known to have COPD and she is maintain on oxygen on outpatient basis at 2 L/m nasal cannula. Currently she is on 3 L. No previous Covid 19 infection and the patient received origin vaccination. She is currently doing well. Energy level is improved compared to yesterday. She is currently on Decadron 6 mg IV every 24 hours. She is also on Spiriva and using albuterol HFA [id number]. No significant cough or sputum production. No pleurisy. No hemoptysis. Labs from today shows a white cell count of 18.6 with a hemoglobin 12.5, BUN is at 20 mg and 0.6 and a sodium level is at 143. D-dimer was at 0.5 and the patient had a pro-calcitonin level of 0.06. On today's evaluation of 05/03/2023, the patient remains on 2 L O2 nasal cannula. She is known to have COPD and she had an acute exacerbation related to Covid 19 infection. She remains on Decadron 6 mg IV on a daily basis. At home, she is maintain on Trelegy Ellipta one inhalation a day and while in the hospital, she is taken Symbicort. Cough and congestion still present although improved. No new complaints. White cell cause of 14.5, he was 13, B is 21 with a creatinine of 0.5 and a sodium level is at 141. Pro-calcitonin level is nonelevated. No chest pain. No nausea. No vomiting. Overall functionality is impaired secondary to advanced COPD. She has home O2. Objective - Vital Signs Vital signs: Vital Signs Temp 98.0 F 05/02/23 23:39 Pulse 61 05/03/23 08:00 Resp 16 05/03/23 08:00 BP 129/70 05/03/23 08:00 Pulse Ox 99 05/03/23 08:00 FiO2 Intake & Output 05/02/23 05/03/23 05/03/23 18:59 06:59 18:59 Intake Total 358 10 118 Output Total 400 Balance -42 10 118 Intake: IV 10 Invasive Line 2 10 Oral 358 118 Output: Urine 400 Other: Voiding Method Bedside Commode Bedside Commode # Voids 2 1 # Bowel Movements 1 - Exam No acute distress, oriented 3. Was on 3 L nasal cannula. No audible wheezing, use of accessory muscles, or conversational dyspnea. HEENT examination is grossly unremarkable. Mucous membranes are moist. No oral lesions. Neck supple. Full range of motion. No adenopathy thyromegaly or neck vein distention. Cardiovascular examination reveals regular rhythm rate. S1-S2 normal. No S3 or S4. No discernible murmur noted. Heart sounds are distant. Lungs reveal mostly clear breath sounds. Scattered rhonchi are noted. No wheezes. Minimal basilar crackles. Abdomen soft bowel sounds are heard. No masses or tenderness. Extremities are intact. No cyanosis clubbing or edema. Skin is without rash or lesion. - Labs CBC & Chem 7: 05/03/23 08:31 05/03/23 08:31 Labs: Abnormal Lab Results - Last 24 Hours (Table) 05/03/23 05/03/23 Range/Units 08:31 08:31 WBC 14.5 H (3.8-10.6) k/uL MCHC 30.6 L (31.0-37.0) g/dL Neutrophils # 11.5 H (1.3-7.7) k/uL BUN 21 H (7-17) mg/dL Assessment and Plan Plan: Acute hypoxemic respiratory failure, likely secondary to COPD exacerbation, and likely complicated by coronavirus infection, and/or coronavirus associated pneumonia. The patient is currently on 3 L of oxygen by nasal cannula. The patient is known to have chronic hypoxic respiratory failure and she has limited on oxygen at 3 L/m nasal cannula Acute COPD exacerbation secondary to Covid 19 infection. No clear evidence of pneumonia. Chronic hypoxic respiratory failure maintained on oxygen 2 L/m nasal cannula History of ongoing tobacco use with nicotine addiction. History of hypertension. History of hyperlipidemia. History of previous myocardial infarction. History of osteoarthritis. Leukocytosis, to be monitored, likely reactive, could be related to steroids Plan: Clinically improving, and the rest of the management can be done on outpatient basis. The patient remains on 3 L of oxygen by nasal cannula with pulse ox of 99% Continue Decadron Monitor white cell count Wean down FiO2 to baseline of 2 L The patient needs to resume Trelegy Ellipta at a time of discharge Complete the course of Decadron Continue albuterol nebulizer at home 4 times a day Increase mobility Continue Lovenox for DVT prophylaxis We'll continue to follow Outpatient follow-up regarding her COPD and post Covid 19 infection.
[2023-05-03 13:05] VITALS: BP 115/57; PULSE 47
== END 2023-05-03 13:23 | disposition home or self-care (01) | DRG 177 ==
LOC: EC 15:12 → SUPCPDRO 15:12 → 3SCARD 16:41 → OBSVTOIN 05-02 12:08
PROVIDERS: ADMIT Internal Medicine; ATTEND Internal Medicine
DX: U07.1 COVID-19 (principal); J12.82 Pneumonia due to coronavirus disease 2019; J96.21 Acute and chronic respiratory failure with hypoxia; J44.0 Chronic obstructive pulmonary disease with (acute) lower respiratory infection; J44.1 Chronic obstructive pulmonary disease with (acute) exacerbation; I10 Essential (primary) hypertension; I25.82 Chronic total occlusion of coronary artery; M19.041 Primary osteoarthritis, right hand; M19.90 Unspecified osteoarthritis, unspecified site; M19.042 Primary osteoarthritis, left hand; I25.2 Old myocardial infarction; T38.0X5A Adverse effect of glucocorticoids and synthetic analogues, initial encounter; D72.829 Elevated white blood cell count, unspecified; E78.5 Hyperlipidemia, unspecified; F17.210 Nicotine dependence, cigarettes, uncomplicated; I25.10 Atherosclerotic heart disease of native coronary artery without angina pectoris; Z66 Do not resuscitate; Z79.82 Long term (current) use of aspirin; Z79.899 Other long term (current) drug therapy; Z82.5 Family history of asthma and other chronic lower respiratory diseases; Z99.81 Dependence on supplemental oxygen; Z28.21 Immunization not carried out because of patient refusal; Z79.51 Long term (current) use of inhaled steroids; Z79.52 Long term (current) use of systemic steroids; Z88.6 Allergy status to analgesic agent
CPT/HCPCS: 36415; 71045; 80048; 80053; 82248; 83615; 83735; 83880; 84100; 84145; 84484; 85025; 85379; 85610; 85730; 86140; 87636; 93005; 94640; 94760; 96361; 96374; 96376; 99291

== ENCOUNTER 2023-07-17 21:43 | Inpatient (IN) | payer MEDICARE ==
--- NOTE | 2023-07-17 21:54 | ED ---
General Adult HPI - General Stated complaint: respiratory distress Time Seen by Provider: 07/17/23 21:46 Source: patient, EMS, RN notes reviewed, old records reviewed Limitations: no limitations - History of Present Illness Initial comments: 73-year-old female with history of oxygen dependent COPD presenting with increased cough and dyspnea. Patient was transported by paramedics, hypoxic requiring increased supplemental oxygen. She was given 2 albuterol and 125 mg Solu-Medrol during transport. With the albuterol she did have some improvement. She states that her symptoms have progressed over the past 1 to 2 days. She denies fever. Denies central chest pain. Denies lower extremity pain or s welling. - Related Data Home Medications Medication Instructions Recorded Confirmed Atorvastatin [Lipitor] 80 mg PO DAILY 12/04/19 04/30/23 carvediloL [Coreg] 6.25 mg PO BID 12/04/19 04/30/23 Albuterol Inhaler [Ventolin Hfa 2 puff INHALATION RT-QID PRN 04/30/23 04/30/23 Inhaler] Fluticasone Nasal Shanks [Flonase 1 - 2 spr EA NOSTRIL BID PRN 04/30/23 04/30/23 Nasal Shanks] Fluticasone/Umeclidin/Vilanter 1 puff INHALATION RT-DAILY 04/30/23 04/30/23 [Trelegy Ellipta 100-62.5-25] Ipratropium-Albuterol Nebulize 3 ml INHALATION RT-Q4H PRN 04/30/23 04/30/23 [Duoneb 0.5 mg-3 mg/3 ml Soln] Previous Rx's Medication Instructions Recorded dexAMETHasone [Decadron] 6 mg PO DAILY #7 tablet 05/03/23 Allergies Allergy/AdvReac Type Severity Reaction Status Date / Time acetaminophen [From Tylenol] Allergy Rash/Hives Verified 04/30/23 17:45 Review of Systems ROS Statement: Those systems with pertinent positive or pertinent negative responses have been documented in the HPI. ROS Other: All systems not noted in ROS Statement are negative. Past Medical History Past Medical History: Asthma, Chest Pain / Angina, COPD, Hyperlipidemia, Hypertension, Myocardial Infarction (TN), Osteoarthritis (OA) Additional Past Medical History / Comment(s): Stress induced asthma, pt states told she had a TN approximately 5-7 yrs ago by EKG, cardiac cath 2018 in [place]-told one vessel 100% occluded, UTI, arthritis bilateral hands. Last Myocardial Infarction Date:: unkn History of Any Multi-Drug Resistant Organisms: None Reported Past Surgical History: Breast Surgery, Section, Cholecystectomy, Orthopedic Surgery Additional Past Surgical History / Comment(s): Benign L breast tumor removed, R arm fracture with hardware, cardiac cath 2019 in [place]-told one vessel 100% occluded. Past Anesthesia/Blood Transfusion Reactions: No Reported Reaction Past Psychological History: No Psychological Hx Reported Smoking Status: Current every day smoker - Past Family History Father Family Medical History: CVA/TIA Additional Family Medical History / Comment(s): Father of a stroke at the a ge of 57yrs. Mother Family Medical History: Cancer, COPD Additional Family Medical History / Comment(s): Mother was a smoker. She of gallbladder cancer at the age of 86 yrs. General Exam General appearance: alert, in distress Head exam: Present: atraumatic, normocephalic Eye exam: Present: normal appearance, PERRL ENT exam: Present: mucous membranes dry Neck exam: Present: normal inspection. Absent: tenderness, meningismus Respiratory exam: Present: respiratory distress, wheezes, accessory muscle use, decreased breath sounds, prolonged expiratory Cardiovascular Exam: Present: normal rhythm, tachycardia GI/Abdominal exam: Present: soft. Absent: distended, tenderness, guarding Extremities exam: Present: normal inspection, normal capillary refill Neurological exam: Present: alert, oriented X3, CN II-XII intact. Absent: motor sensory deficit Psychiatric exam: Present: anxious Course Vital Signs 07/17/23 07/17/23 21:47 23:06 Temperature 97.9 F Pulse Rate 110 H 92 Respiratory 28 H Rate Blood Pressure 153/92 O2 Sat by Pulse 97 Oximetry Medical Decision Making - Medical Decision Making Was pt. sent in by a medical professional or institution (, PA, COMMUNITY RELATIONS ADVISOR, urgent care, hospital, or jail...) When possible be specific @ -No Did you speak to anyone other than the patient for history (EMS, parent, family, police, friend...)? What history was obtained from this source @Paramedics Did you review nursing and triage notes (agree or disagree)? Why? @ -I reviewed and agree with nursing and triage notes Were old charts reviewed (outside hosp., previous admission, EMS record, old EKG, old radiological studies, urgent care reports/EKG's, jail records)? Report findings @ -No old charts were reviewed Differential Diagnosis (chest pain, altered mental status, abdominal pain women, abdominal pain men, vaginal bleeding, weakness, fever, dyspnea, syncope, headache, dizziness, GI bleed, back pain, seizure, CVA, palpatations, mental health, musculoskeletal)? @ -Differential Dyspnea: Coronary syndrome, arrhythmia, tamponade, asthma, COPD, pulmonary embolism, pneumonia, pneumothorax, pulmonary effusion, anaphylaxis, diabetic ketoacidosis, flailed chest, pulmonary contusion, diaphragmatic rupture, anemia, neuromuscular, this is not meant to be an all-inclusive list. EKG interpreted by me (3pts min.). @ -EKG: Sinus rhythm rate of 96, TX interval 137, QRS duration 90, QTc 413, respiratory artifact limiting assessment. X-rays interpreted by me (1pt min.). @Chest x-ray negative for focal pneumonia, no pneumothorax CT interpreted by me (1pt min.). @ -None done U/S interpreted by me (1pt. min.). @ -None done What testing was considered but not performed or refused? (CT, X-rays, U/S, labs)? Why? @ -None What meds were considered but not given or refused? Why? @ -None Did you discuss the management of the patient with other professionals (professionals i.e. , PA, COMMUNITY RELATIONS ADVISOR, lab, RT, psych nurse, director social welfare, bread and pastry baker, teacher, correctional officer lieutenant, mental health case manager)? Give summary @ -Dr. Amos Was smoking cessation discussed for >3mins.? @ -No Was critical care preformed (if so, how long)? @ -Yes, 35 minutes Were there social determinants of health that impacted care today? How? (Ho melessness, low income, unemployed, alcoholism, drug addiction, transportation, low edu. Level, literacy, decrease access to med. care, assisted, rehab)? @ -No Was there de-escalation of care discussed even if they declined (Discuss DNR or withdrawal of care, Hospice)? DNR status @ -No What co-morbidities impacted this encounter? (DM, HTN, Smoking, COPD, CAD, Cancer, CVA, ARF, Chemo, Hep., AIDS, mental health diagnosis, sleep apnea, morbid obesity)? @ -COPD Was patient admitted / discharged? Hospital course, mention meds given and route, prescriptions, significant lab abnormalities, going to OR and other pertinent info. @ -73-year-old female with increased cough and dyspnea. Patient is in moderate respiratory distress with decreased air entry, bilaterally wheezing. Patient received steroids by paramedics prior to arrival as well as albuterol. She has a leukocytosis which may be secondary to recent steroids versus acute infection. Patient has normal electrolytes. Chest x-ray is without focal pneumonia or pneumothorax. Patient will be admitted for treatment of COPD with exacerbation. Pulmonology placed on consult. Undiagnosed new problem with uncertain prognosis? @ -No Drug Therapy requiring intensive monitoring for toxicity (Heparin, Nitro, Insulin, Cardizem)? @ -No Were any procedures done? @ -No Diagnosis/symptom? @ -COPD exacerbation Acute, or Chronic, or Acute on Chronic? @ -Acute on chronic Uncomplicated (without systemic symptoms) or Complicated (systemic symptoms)? @ -[Complicated Side effects of treatment? @ -No Exacerbation, Progression, or Severe Exacerbation? @ -No Poses a threat to life or bodily function? How? (Chest pain, USA, TN, pneumonia, PE, COPD, DKA, ARF, appy, cholecystitis, CVA, Diverticulitis, Homicidal, Suicidal, threat to staff... and all critical care pts) @ -Yes, COPD, respiratory failure - Lab Data Result diagrams: 07/17/23 22:09 07/17/23 22:09 Lab Results 07/17/23 07/17/23 07/17/23 Range/Units 22:09 22:09 22:09 WBC 16.2 H (3.8-10.6) k/uL RBC 4.12 (3.80-5.40) m/uL Hgb 12.6 (11.4-16.0) gm/dL Hct 40.7 (34.0-46.0) % MCV 98.9 (80.0-100.0) fL MCH 30.5 (25.0-35.0) pg MCHC 30.8 L (31.0-37.0) g/dL RDW 13.6 (11.5-15.5) % Plt Count 308 (150-450) k/uL MPV 8.9 Neutrophils % 81 % Lymphocytes % 15 % Monocytes % 3 % Eosinophils % 1 % Basophils % 0 % Neutrophils # 13.1 H (1.3-7.7) k/uL Lymphocytes # 2.4 (1.0-4.8) k/uL Monocytes # 0.4 (0-1.0) k/uL Eosinophils # 0.2 (0-0.7) k/uL Basophils # 0.1 (0-0.2) k/uL Hypochromasia Slight PT 10.6 (10.0-12.5) sec INR 1.0 (<1.2) APTT 23.1 (22.0-30.0) sec Sodium 141 (137-145) mmol/L Potassium 4.8 (3.5-5.1) mmol/L Chloride 108 H (98-107) mmol/L Carbon Dioxide 26 (22-30) mmol/L Anion Gap 7 mmol/L BUN 24 H (7-17) mg/dL Creatinine 0.83 (0.52-1.04) mg/dL Est GFR (CKD-EPI)AfAm 83 (>60 ml/min/1.73 sqM) Est GFR (CKD-EPI)NonAf 72 (>60 ml/min/1.73 sqM) Glucose 149 H (74-99) mg/dL Plasma Lactic Acid Rosendo (0.7-2.0) mmol/L Calcium 8.9 (8.4-10.2) mg/dL Magnesium 2.2 (1.6-2.3) mg/dL Total Bilirubin 0.3 (0.2-1.3) mg/dL AST 24 (14-36) U/L ALT 20 (4-34) U/L Alkaline Phosphatase 85 (38-126) U/L Total Protein 6.6 (6.3-8.2) g/dL Albumin 3.8 (3.5-5.0) g/dL 07/17/23 Range/Units 22:09 WBC (3.8-10.6) k/uL RBC (3.80-5.40) m/uL Hgb (11.4-16.0) gm/dL Hct (34.0-46.0) % MCV (80.0-100.0) fL MCH (25.0-35.0) pg MCHC (31.0-37.0) g/dL RDW (11.5-15.5) % Plt Count (150-450) k/uL MPV Neutrophils % % Lymphocytes % % Monocytes % % Eosinophils % % Basophils % % Neutrophils # (1.3-7.7) k/uL Lymphocytes # (1.0-4.8) k/uL Monocytes # (0-1.0) k/uL Eosinophils # (0-0.7) k/uL Basophils # (0-0.2) k/uL Hypochromasia PT (10.0-12.5) sec INR (<1.2) APTT (22.0-30.0) sec Sodium (137-145) mmol/L Potassium (3.5-5.1) mmol/L Chloride (98-107) mmol/L Carbon Dioxide (22-30) mmol/L Anion Gap mmol/L BUN (7-17) mg/dL Creatinine (0.52-1.04) mg/dL Est GFR (CKD-EPI)AfAm (>60 ml/min/1.73 sqM) Est GFR (CKD-EPI)NonAf (>60 ml/min/1.73 sqM) Glucose (74-99) mg/dL Plasma Lactic Acid Rosendo 1.3 (0.7-2.0) mmol/L Calcium (8.4-10.2) mg/dL Magnesium (1.6-2.3) mg/dL Total Bilirubin (0.2-1.3) mg/dL AST (14-36) U/L ALT (4-34) U/L Alkaline Phosphatase (38-126) U/L Total Protein (6.3-8.2) g/dL Albumin (3.5-5.0) g/dL Critical Care Time Critical Care Time: Yes Total Critical Care Time: 35 Disposition Clinical Impression: Acute exacerbation of chronic obstructive pulmonary disease Disposition: ADMITTED IP TO THIS HOSP Condition: Stable Is patient prescribed a controlled substance at d/c from ED?: No Referrals: None,Stated [Primary Care Provider] - 1-2 days Time of Disposition: 23:19
[2023-07-17 22:41] LABS: Basophils # (A) 0.1 k/uL (0-0.2); Basophils % (A) 0 %; Eosinophils # (A) 0.2 k/uL (0-0.7); Eosinophils % (A) 1 %; HCT 40.7 % (34.0-46.0); HGB 12.6 gm/dL (11.4-16.0); Hypochromasia Slight; Lymphocytes # (A) 2.4 k/uL (1.0-4.8); Lymphocytes % (A) 15 %; MCH 30.5 pg (25.0-35.0); MCHC 30.8 g/dL (31.0-37.0); MCV 98.9 fL (80.0-100.0); Mean Platelet Volume 8.9; Monocytes # (A) 0.4 k/uL (0-1.0); Monocytes % (A) 3 %; Neutrophils # (A) 13.1 k/uL (1.3-7.7); Neutrophils % (A) 81 %; Platelet Count 308 k/uL (150-450); RBC 4.12 m/uL (3.80-5.40); RDW 13.6 % (11.5-15.5); WBC 16.2 k/uL (3.8-10.6)
--- NOTE | 2023-07-17 22:53 | XR ---
EXAM: XR Chest, 2 Views CLINICAL HISTORY: ITS.REASON XR Reason: difficulty breathing TECHNIQUE: Frontal and lateral views of the chest. COMPARISON: No relevant prior studies available. FINDINGS: Lungs: Unremarkable. No consolidation. Pleural space: Unremarkable. No pneumothorax. Heart: Cardiomegaly. Mediastinum: Unremarkable. Normal mediastinal contour. Bones/joints: Unremarkable. No acute fracture. IMPRESSION: No consolidation.
[2023-07-17 22:55] LABS: Partial Thromboplastin Time 23.1 sec (22.0-30.0); Prothrombin Time 10.6 sec (10.0-12.5)
[2023-07-17] MEDS: IPRATROPIUM 0.5 MG/2.5 ML NEBU INHALATION STA (23:06)
[2023-07-17] MEDS: ALBUTEROL NEBULIZED 2.5 MG/3 ML INHALATION STA (23:06)
[2023-07-17 23:13] LABS: ALT 20 U/L (4-34); AST 24 U/L (14-36); African American GFR (CKD) 83 (>60 ml/min/1.73 sqM); Albumin 3.8 g/dL (3.5-5.0); Alkaline Phosphatase 85 U/L (38-126); Anion Gap 7 mmol/L; Blood Urea Nitrogen 24 mg/dL (7-17); Calcium 8.9 mg/dL (8.4-10.2); Carbon Dioxide 26 mmol/L (22-30); Chloride 108 mmol/L (98-107); Glucose 149 mg/dL (74-99); Magnesium 2.2 mg/dL (1.6-2.3); Non-African American GFR(CKD) 72 (>60 ml/min/1.73 sqM); Potassium 4.8 mmol/L (3.5-5.1); Sodium 141 mmol/L (137-145); Total Bilirubin 0.3 mg/dL (0.2-1.3); Total Protein 6.6 g/dL (6.3-8.2)
[2023-07-17] MEDS ORDERED: NALOXONE 0.4 MG/ML 1 ML VIAL IVP PRN (23:16)
[2023-07-17 23:21] LABS: NT-Pro-B-Type Natriuretic Pept 491 pg/mL
[2023-07-17] MEDS: methylPREDNISolone SOD SUCCI 125 MG/2 ML VIAL IV SCH (23:38)
[2023-07-17] MEDS: AZITHROMYCIN 500 MG in SODIUM CHLORIDE 0.9% 250 ML IVPB STA (23:42)
--- NOTE | 2023-07-18 00:43 | P.HPIM ---
History of Present Illness H&P Date: 07/18/23 Patient is a 73-year-old female with a PMH of COPD, chronic hypoxic respiratory failure on 4 L nasal cannula oxygen at home, CAD, hypertension, and hyperlipidemia who presents to the emergency room with complaints of shortness of breath. Patient notes that her breathing quickly worsened earlier today without associated chest discomfort, nausea, diaphoresis, or dizziness. Does report intermittent palpitations. Denies cough, fever, chills, lower extremity pain, lower extremity swelling. Chest x-ray in the emergency room was unremarkable. EKG revealed sinus rhythm with PVCs at 96 bpm with poor baseline and T wave inversion noted in inferior leads as reviewed by me. Laboratory evaluation was remarkable for leukocytosis of 16.2, lactic acid 1.3, proBNP 491, and glucose 149. ED documentation reviewed and case discussed with ED provider. Review of systems: Pertinent positives and negatives as discussed in HPI, a complete review of systems was performed and all other systems are negative. Physical examination: Vital signs reviewed General: non toxic, no distress, appears at stated age, obese Derm: no unusual rashes/lesions, warm Head: atraumatic, normocephalic, symmetric Eyes: EOMI, no lid lag, anicteric sclera, pupils equal round reactive to light ENT: Nose and ears atraumatic Neck: No cervical lymphadenopathy, trachea midline, supple Mouth: no lip lesion, mucus membranes moist Cardiovascular: S1S2 reg, no murmur, positive dorsalis pedis pulse bilateral, no edema Lungs: Poor air entry bilaterally without wheezing, rhonchi, or rales, no accessory muscle use Abdominal: soft, nontender to palpation, no guarding Ext: muscle strength 5 out of 5 in all 4 extremities grossly, no gross muscle atrophy, no contractures, Neuro: CN II-XI grossly intact, no gross focal neuro deficits Psych: Alert, oriented, appropriate affect Assessment: Acute COPD exacerbation Leukocytosis, likely due to acute stressor with no signs of active infection at this time Chronic conditions: CAD, hypertension, hyperlipidemia Imaging: Chest x-ray in the emergency room was unremarkable. EKG revealed sinus rhythm with PVCs at 96 bpm with poor baseline and T wave inversion noted in inferior leads as reviewed by me. Data Review: Laboratory evaluation was remarkable for leukocytosis of 16.2, lactic acid 1.3, proBNP 491, and glucose 149. Plan: Continue with Tonja and BrittonMedrol Pulmonary consulted Supplemental oxygen Continue with home medications once reconciled Monitor CBC Check procalcitonin levels DVT prophylaxis: Lovenox subcu The patient is admitted with an anticipated greater than 2 midnight stay for evaluation of acute COPD exacerbation CODE STATUS: Full Code Discussed with: Patient Anticipated discharge place: Home Past Medical History Past Medical History: Asthma, Chest Pain / Angina, COPD, Hyperlipidemia, Hypertension, Myocardial Infarction (SC), Osteoarthritis (OA) Additional Past Medical History / Comment(s): Stress induced asthma, pt states told she had a SC approximately 5-7 yrs ago by EKG, cardiac cath 2019 in [place]-told one vessel 100% occluded, UTI, arthritis bilateral hands. Last Myocardial Infarction Date:: unkn History of Any Multi-Drug Resistant Organisms: None Reported Past Surgical History: Breast Surgery, Section, Cholecystectomy, Orthopedic Surgery Additional Past Surgical History / Comment(s): Benign L breast tumor removed, R arm fracture with hardware, cardiac cath 2019 in [place]-[facility] one vessel 100% occluded. Past Anesthesia/Blood Transfusion Reactions: No Reported Reaction Past Psychological History: No Psychological Hx Reported Smoking Status: Current every day smoker - Past Family History Father Family Medical History: CVA/TIA Additional Family Medical History / Comment(s): Father of a stroke at the age of 57yrs. Mother Family Medical History: Cancer, COPD Additional Family Medical History / Comment(s): Mother was a smoker. She of gallbladder cancer at the age of 86 yrs. Medications and Allergies Home Medications Medication Instructions Recorded Confirmed Type Atorvastatin [Lipitor] 80 mg PO DAILY 12/04/19 04/30/23 History carvediloL [Coreg] 6.25 mg PO BID 12/04/19 04/30/23 History Albuterol Inhaler [Ventolin Hfa 2 puff INHALATION RT-QID PRN 04/30/23 04/30/23 History Inhaler] Fluticasone Nasal [place] [Flonase 1 - 2 spr EA NOSTRIL BID PRN 04/30/23 04/30/23 History Nasal [place]] Fluticasone/Umeclidin/Vilanter 1 puff INHALATION RT-DAILY 04/30/23 04/30/23 History [Trelegy Ellipta 100-62.5-25] Ipratropium-Albuterol Nebulize 3 ml INHALATION RT-Q4H PRN 04/30/23 04/30/23 History [Duoneb 0.5 mg-3 mg/3 ml Soln] dexAMETHasone [Decadron] 6 mg PO DAILY #7 tablet 05/03/23 Rx Allergies Allergy/AdvReac Type Severity Reaction Status Date / Time acetaminophen [From Tylenol] Allergy Rash/Hives Verified 04/30/23 17:45 Physical Exam Vitals: Vital Signs Temp Pulse Resp BP Pulse Ox 07/17/23 23:25 92 07/17/23 23:06 92 07/17/23 21:47 97.9 F 110 H 28 H 153/92 97 Intake and Output 07/17/23 07/17/23 07/18/23 14:59 22:59 06:59 Other: Weight 86.183 kg Results CBC & Chem 7: 07/17/23 22:09 07/17/23 22:09 Labs: Abnormal Lab Results - Last 24 Hours (Table) 07/17/23 07/17/23 Range/Units 22:09 22:09 WBC 16.2 H (3.8-10.6) k/uL MCHC 30.8 L (31.0-37.0) g/dL Neutrophils # 13.1 H (1.3-7.7) k/uL Chloride 108 H (98-107) mmol/L BUN 24 H (7-17) mg/dL Glucose 149 H (74-99) mg/dL
[2023-07-18 01:39] LABS: HCT 37.4 % (34.0-46.0); HGB 11.7 gm/dL (11.4-16.0); Hypochromasia Slight; MCHC 31.4 g/dL (31.0-37.0); MCV 98.7 fL (80.0-100.0); Mean Platelet Volume 8.6; Platelet Count 285 k/uL (150-450); RBC 3.79 m/uL (3.80-5.40); RDW 13.6 % (11.5-15.5); WBC 14.3 k/uL (3.8-10.6)
--- NOTE | 2023-07-18 07:20 | P.CNPUL ---
History of Present Illness Consult date: 07/18/23 Requesting physician: Jackson Zambrano Reason for consult: COPD Chief complaint: Shortness of breath, flushing, heart palpitations History of present illness: I am seeing this patient in new consultation today 07/18/2023 in the emergency room after she presents with multiple days of ongoing flushing, heart palpitations, and shortness of breath. Patient is a 73-year-old white female with past medical history significant for very severe COPD with an FEV1 of 17% of predicted, recent acute COVID-19 infection, hyperlipidemia, hypertension, coronary artery disease with previous [place], and former tobacco smoker quitting approximately 7 years ago. Her primary care provider is a Dr. Hernandez out of [place], who was originally managing the patient's COPD. Patient did have a initial visit in the pulmonary office, and subsequently had a PFT on 07/04/23 which showed a severely reduced FEV1 of 17% of predicted. It was not relayed that the patient was already on Trelegy inhaler. Patient was started on Symbicort and Spiriva maintenance inhalers along with her as needed albuterol inhaler. Patient states that she has been taking her Trelegy inhaler along with Spiriva inhaler twice a day, and her Symbicort inhaler. She is doubling up on her Spiriva inhaler. She is also excessively using her albuterol inhaler every couple hours. She is complaining of a combination of flushing, tachycardia, and heart palpitations. She says that she also gets short of breath during these events but her SpO2 never drops. She notes that her heart rate is elevated on her home pulse oximeter. She denies any change in her chronic cough, purulent sputum, fever. Denies sick contacts. She denies any chest pain, lightheadedness, syncopal episodes. She is currently sitting up in bed, on 4 L/min nasal cannula, in no acute distress. She chronically utilizes 4 L/min nasal cannula while at home. Chest x-ray on arrival does not show any focal infiltrates or evidence of pneumonia. There is hyperinflation consistent with COPD. CBC on arrival: WBC count 16.2, hemoglobin 12.6, hematocrit 40.7, platelets 308. BMP on arrival was unremarkable. Lactic acid level 1.3. NT proBNP 491. Vital signs are stable. Review of Systems REVIEW OF SYSTEMS: CONSTITUTIONAL: Denies any recent significant weight loss or weight gain. EYES: Denies change in vision. EARS, NOSE, MOUTH, THROAT: Denies headaches, denies sore throat. CARDIOVASCULAR: Denies chest pain or syncopal episodes. Admits heart palpitations that are self limiting with rest. RESPIRATORY: See HPI GASTROINTESTINAL: Denies change in appetite, abdominal pain, vomiting, or diarrhea. Admits occasional nausea with events. GENITOURINARY: Denies hematuria, denies infections. MUSKULOSKELETAL: Denies pain, denies swelling. INTEGUMENTARY: Denies rash, denies eczema. NEUROLOGICAL: Denies recent memory loss, no recent seizure activity. PSYCHIATRIC: Denies anxiety, denies depression. HEMATOLOGIC/LYMPHATIC: Denies anemia, denies enlarged lymph node Past Medical History Past Medical History: Asthma, Chest Pain / Angina, COPD, Hyperlipidemia, Hypertension, Myocardial Infarction (WA), Osteoarthritis (OA) Additional Past Medical History / Comment(s): Stress induced asthma, pt states told she had a WA approximately 5-7 yrs ago by EKG, cardiac cath 2019 in [place]-told one vessel 100% occluded, UTI, arthritis bilateral hands. Last Myocardial Infarction Date:: unkn History of Any Multi-Drug Resistant Organisms: None Reported Past Surgical History: Breast Surgery, Section, Cholecystectomy, Orthopedic Surgery Additional Past Surgical History / Comment(s): Benign L breast tumor removed, R arm fracture with hardware, cardiac cath 2019 in [place]-told one vessel 100% occluded. Past Anesthesia/Blood Transfusion Reactions: No Reported Reaction Past Psychological History: No Psychological Hx Reported Smoking Status: Current every day smoker - Past Family History Father Family Medical History: CVA/TIA Additional Family Medical History / Comment(s): Father of a stroke at the age of 57yrs. Mother Family Medical History: Cancer, COPD Additional Family Medical History / Comment(s): Mother was a smoker. She of gallbladder cancer at the age of 86 yrs. Medications and Allergies Home Medications Medication Instructions Recorded Confirmed Type Atorvastatin [Lipitor] 80 mg PO DAILY 12/04/19 04/30/23 History carvediloL [Coreg] 6.25 mg PO BID 12/04/19 04/30/23 History Albuterol Inhaler [Ventolin Hfa 2 puff INHALATION RT-QID PRN 04/30/23 04/30/23 History Inhaler] Fluticasone Nasal [place] [Flonase 1 - 2 spr EA NOSTRIL BID PRN 04/30/23 04/30/23 History Nasal [place]] Fluticasone/Umeclidin/Vilanter 1 puff INHALATION RT-DAILY 04/30/23 04/30/23 History [Yesi Ellipta 100-62.5-25] Ipratropium-Albuterol Nebulize 3 ml INHALATION RT-Q4H PRN 04/30/23 04/30/23 History [Duoneb 0.5 mg-3 mg/3 ml Soln] dexAMETHasone [Decadron] 6 mg PO DAILY #7 tablet 05/03/23 Rx Allergies Allergy/AdvReac Type Severity Reaction Status Date / Time acetaminophen [From Tylenol] Allergy Rash/Hives Verified 04/30/23 17:45 Physical Exam Vitals: Vital Signs Temp Pulse Resp BP Pulse Ox 07/18/23 06:00 69 20 106/67 98 07/18/23 03:00 70 18 82/58 98 07/18/23 02:32 78 18 98/79 98 07/17/23 23:25 92 07/17/23 23:06 92 07/17/23 21:47 97.9 F 110 H 28 H 153/92 97 Intake and Output 07/17/23 07/18/23 07/18/23 22:59 06:59 14:59 Other: Weight 86.183 kg GENERAL EXAM: Alert, 73-year-old obese white female, comfortable in no apparent distress. HEAD: Normocephalic and atraumatic EYES: Normal reaction of pupils, equal size. NOSE: Clear with pink turbinates. THROAT: No erythema or exudates. NECK: No masses, no JVD. CHEST: No chest wall deformity. LUNGS: Equal air entry with faint expiratory wheezes heard throughout. On 4 L/min nasal cannula. No conversational dyspnea or accessory muscle use.. CVS: S1 and S2 normal with no audible murmur, regular rhythm. No extra heart sounds ABDOMEN: No hepatosplenomegaly, active bowel sounds, no guarding or rigidity. SPINE: No scoliosis or deformity SKIN: No rashes CENTRAL NERVOUS SYSTEM: No focal deficits, tone is normal in all 4 extremities. EXTREMITIES: There is no peripheral edema, clubbing, or cyanosis. Peripheral pulses are intact. Results - Laboratory Findings CBC and BMP: 07/18/23 01:27 07/17/23 22:09 PT/INR, D-dimer PT 10.6 sec (10.0-12.5) 07/17/23 22:09 INR 1.0 (<1.2) 07/17/23 22:09 Abnormal lab findings: Abnormal Labs 07/17/23 07/17/23 07/18/23 22:09 22:09 01:27 WBC 16.2 H 14.3 H RBC 3.79 L MCHC 30.8 L Neutrophils # 13.1 H Chloride 108 H BUN 24 H Glucose 149 H - Diagnostic Findings Chest x-ray: image reviewed Assessment and Plan Assessment: Acute COPD exacerbation, chest x-ray does not show any focal infiltrates or evidence of pneumonia. There is hyperinflation consistent with COPD. Very severe chronic obstructive pulmonary disease, with FEV1 17% of predicted Chronic hypoxrmic respiratory failure, secondary to above Polypharmacy, patient was taking multiple different inhalers at home including multiple different maintenance inhalers. Taking her Spiriva inhaler twice a day. She is also excessively using her albuterol rescue inhaler. Possible cardiac toxicity, with associated heart palpitations and flushing, likely secondary to above History of hyperlipidemia History of hypertension History of coronary artery disease Former tobacco dependence, quitting 7 years ago Plan: Patient's medications, labs, chest x-ray reviewed Continue supplemental oxygen. Patient will be continue on Symbicort inpatient, along with duo nebs around the clock and IV solumedrol Discontinue Spiriva and Symbicort on discharge, regimen is likely to complex for the patient to handle independently. Patient instructed to continue her Trelegy inhaler and albuterol rescue inhaler on an outpatient basis. Will continue to follow, and additional recommendations are forthcoming. I have personally seen and examined the patient, performed the documentation and the assessment and plan as written. Number of minutes spent on the visit:20 Time with Patient: Greater than 30
[2023-07-18] MEDS: IPRATROPIUM-ALBUTEROL 3 ML NEB INHALATION SCH (07:32)
[2023-07-18] MEDS: SYMBICORT 160-4.5 MCG INHALER INHALATION SCH (07:32)
[2023-07-18] MEDS: IBUPROFEN 400 MG TAB PO PRN (11:14)
[2023-07-18] MEDS: ONDANSETRON 4 MG/2 ML VIAL IVP PRN (11:17)
[2023-07-18] MEDS ORDERED: SODIUM CHLORIDE 0.65% NASAL SPRAY 44 ML BTL NASAL PRN (14:41)
[2023-07-18] MEDS: carvediloL 6.25 MG TAB PO SCH (18:27)
[2023-07-18] MEDS ORDERED: DEXTROSE 50% SYRINGE 50 ML IVP PRN ×2 (18:33)
[2023-07-18 20:09] LABS: Glucose,Whole Blood 138 mg/dL (70-110)
[2023-07-18] MEDS: INSULIN ASPART (NovoLOG) 100 UNIT/ML VIAL SQ SCH (20:11)
[2023-07-18] MEDS: ASPIRIN 325 MG TAB PO STA (20:45)
[2023-07-18] MEDS: IPRATROPIUM-ALBUTEROL 3 ML NEB INHALATION PRN (23:34)
[2023-07-19 07:30] LABS: Glucose,Whole Blood 135 mg/dL (70-110)
[2023-07-19 08:32] LABS: Basophils # (A) 0.01 X 10*3/uL (0.00-0.10); Basophils % (A) 0.1 %; Eosinophils # (A) 0 X 10*3/uL (0.04-0.35); Eosinophils % (A) 0 %; HCT 34.9 % (37.2-46.3); HGB 10.9 g/dL (12.0-15.0); Lymphocytes # (A) 1.18 X 10*3/uL (0.90-5.00); Lymphocytes % (A) 6.8 %; MCH 30.5 pg (27.0-32.0); MCHC 31.2 g/dL (32.0-37.0); MCV 97.8 FL (80.0-97.0); Mean Platelet Volume 11.9 FL (9.5-12.2); Monocytes # (A) 0.37 X 10*3/uL (0.20-1.00); Monocytes % (A) 2.1 %; NRBC Per 100 WBC 0 X 10*3/uL (0.00-0.01); Neutrophils # (A) 15.77 X 10*3/uL (1.80-7.70); Neutrophils % (A) 90.6 %; Platelet Count 297 X 10*3/uL (140-440); RBC 3.57 X 10*6/uL (4.10-5.20); RDW 14.2 % (11.5-14.5)
[2023-07-19 08:51] LABS: BUN/Creat Ratio 30.86 Ratio (12.00-20.00); Blood Urea Nitrogen 21.6 mg/dL (9.0-27.0); Calcium 9.2 mg/dL (8.7-10.3); Carbon Dioxide 28.5 mmol/L (21.6-31.8); Chloride 106 mmol/L (96-109); Glucose 140 mg/dL (70-110); Potassium 4.6 mmol/L (3.5-5.5); Sodium 141 mmol/L (135-145)
[2023-07-19] MEDS: ASPIRIN 81 MG PO SCH (08:55)
[2023-07-19] MEDS: ATORVASTATIN 80 MG TAB PO SCH (08:55)
--- NOTE | 2023-07-19 11:02 | P.PN ---
Subjective Progress Note Date: 07/19/23 I am seeing this patient in new consultation today 07/18/2023 in the emergency room after she presents with multiple days of ongoing flushing, heart palpitations, and shortness of breath. Patient is a 73-year-old white female with past medical history significant for very severe COPD with an FEV1 of 17% of predicted, recent acute COVID-19 infection, hyperlipidemia, hypertension, coronary artery disease with previous HI, and former tobacco smoker quitting approximately 7 years ago. Her primary care provider is a Dr. Hernandez out of [place], who was originally managing the patient's COPD. Patient did have a initial visit in the pulmonary office, and subsequently had a PFT on 07/04/23 which showed a severely reduced FEV1 of 17% of predicted. It was not relayed that the patient was already on Trelegy inhaler. Patient was started on Symbicort and Spiriva maintenance inhalers along with her as needed albuterol inhaler. Patient states that she has been taking her Trelegy inhaler along with Spiriva inhaler twice a day, and her Symbicort inhaler. She is doubling up on her Spiriva inhaler. She is also excessively using her albuterol inhaler every couple hours. She is complaining of a combination of flushing, tachycardia, and heart palpitations. She says that she also gets short of breath during these events but her SpO2 never drops. She notes that her heart rate is elevated on her home pulse oximeter. She denies any change in her chronic cough, purulent sputum, fever. Denies sick contacts. She denies any chest pain, lightheadedness, syncopal episodes. She is currently sitting up in bed, on 4 L/min nasal cannula, in no acute distress. She chronically utilizes 4 L/min na jaylin cannula while at home. Chest x-ray on arrival does not show any focal infiltrates or evidence of pneumonia. There is hyperinflation consistent with COPD. CBC on arrival: WBC count 16.2, hemoglobin 12.6, hematocrit 40.7, platelets 308. BMP on arrival was unremarkable. Lactic acid level 1.3. NT proBNP 491. Vital signs are stable. The patient is seen today July 19, 2023 in follow-up on the regular medical floor. She is currently resting in bed. Awake and alert in no acute distress. She is continuing to require bronchodilators [id number]. Blood cultures revealing no growth. White count 17.4. Hemoglobin 10.9. Platelets 297. Sodium 141. Potassium 4.6. Bicarb 106. BUN 22. Creatinine 0.7. Glucose 140. She remains on DuoNeb inhalations, Symbicort, Solu-Medrol. Objective - Vital Signs Vital signs: Vital Signs Temp 98.0 F 07/19/23 07:30 Pulse 84 07/19/23 07:30 Resp 16 07/19/23 07:30 BP 108/67 07/19/23 07:30 Pulse Ox 98 07/19/23 07:30 FiO2 Intake & Output 07/18/23 07/19/23 07/19/23 18:59 06:59 18:59 Weight 86.183 kg 86 kg Other: Voiding Method Toilet # Voids 3 - Exam GENERAL EXAM: Alert, 73-year-old female, on 4 L nasal cannula, fairly comfortable in no apparent distress. HEAD: Normocephalic and atraumatic EYES: Normal reaction of pupils, equal size. NOSE: Clear with pink turbinates. THROAT: No erythema or exudates. NECK: No masses, no JVD. CHEST: No chest wall deformity. LUNGS: Equal air entry with faint expiratory wheezes heard throughout. With mild conversational dyspnea. CVS: S1 and S2 normal with no audible murmur, regular rhythm. No extra heart sounds ABDOMEN: No hepatosplenomegaly, active bowel sounds, no guarding or rigidity. SPINE: No scoliosis or deformity SKIN: No rashes CENTRAL NERVOUS SYSTEM: No focal deficits, tone is normal in all 4 extremities. EXTREMITIES: There is no peripheral edema, clubbing, or cyanosis. Peripheral pulses are intact. - Labs CBC & Chem 7: 07/19/23 05:51 07/19/23 05:51 Labs: Abnormal Lab Results - Last 24 Hours (Table) 07/18/23 07/19/23 07/19/23 Range/Units 20:07 05:51 05:51 WBC 17.40 H (4.50-10.00) X 10*3/uL RBC 3.57 L (4.10-5.20) X 10*6/uL Hgb 10.9 L (12.0-15.0) g/dL Hct 34.9 L (37.2-46.3) % MCV 97.8 H (80.0-97.0) FL MCHC 31.2 L (32.0-37.0) g/dL Immature Gran # 0.07 H (0.00-0.04) X 10*3/uL Neutrophils # 15.77 H (1.80-7.70) X 10*3/uL Eosinophils # 0 L (0.04-0.35) X 10*3/uL BUN/Creatinine Ratio 30.86 H (12.00-20.00) Ratio Glucose 140 H (70-110) mg/dL POC Glucose (mg/dL) 138 H (70-110) mg/dL 07/19/23 Range/Units 07:29 WBC (4.50-10.00) X 10*3/uL RBC (4.10-5.20) X 10*6/uL Hgb (12.0-15.0) g/dL Hct (37.2-46.3) % MCV (80.0-97.0) FL MCHC (32.0-37.0) g/dL Immature Gran # (0.00-0.04) X 10*3/uL Neutrophils # (1.80-7.70) X 10*3/uL Eosinophils # (0.04-0.35) X 10*3/uL BUN/Creatinine Ratio (12.00-20.00) Ratio Glucose (70-110) mg/dL POC Glucose (mg/dL) 135 H (70-110) mg/dL Microbiology - Last 24 Hours (Table) 07/17/23 22:09 Blood Culture - Preliminary Blood 07/17/23 22:09 Blood Culture - Preliminary Blood Assessment and Plan Assessment: Acute COPD exacerbation, chest x-ray does not show any focal infiltrates or evidence of pneumonia. There is hyperinflation consistent with COPD Very severe chronic obstructive pulmonary disease, with FEV1 17% of predicted Chronic hypoxrmic respiratory failure, secondary to above Polypharmacy, patient was taking multiple different inhalers at home including multiple different maintenance inhalers. Taking her Spiriva inhaler twice a day. She is also excessively using her albuterol rescue inhaler. Possible cardiac toxicity, with associated heart palpitations and flushing, likely secondary to above History of hyperlipidemia History of hypertension History of coronary artery disease Former tobacco dependence, quitting 7 years ago Plan: The patient was seen and evaluated Labs and medications reviewed Continue bronchodilators, steroids Add Lovenox for DVT prophylaxis Titrate the FiO2 as tolerated Increase her activity as tolerated We will continue to follow I have personally seen and examined the patient, performed the documentation and the assessment and plan as written. Number of minutes spent on the visit: 10.
[2023-07-19 12:30] LABS: Glucose,Whole Blood 100 mg/dL (70-110)
[2023-07-19] MEDS: ALBUTEROL HFA INHALER INHALATION PRN (13:27)
--- NOTE | 2023-07-19 13:29 | P.DS ---
Providers Date of admission: 07/17/23 23:17 Expected date of discharge: 07/19/23 Attending physician: Nicko Amos MD Consults: 07/17/23 23:16 Consult Physician Routine Consulting Provider: Jackson Lewis Consult Reason/Comments: COPD Do you want consulting provider notified?: Yes Primary care physician: Stated None Hospital Course: Discharge Diagnosis: End-stage COPD Acute on chronic hypoxic respiratory failure Acute COPD exacerbation Polypharmacy Leukocytosis History of CAD History of hypertension History of dyslipidemia Hospital Course: 73-year-old female with history of advanced COPD, chronic hypoxic respiratory failure on 4 L presenting with worsening shortness of breath. Chest x-ray in the emergency room was unremarkable. EKG revealed sinus rhythm with PVCs at 96 bpm with poor baseline and T wave inversion noted in inferior leads. Laboratory evaluation was remarkable for leukocytosis of 16.2, lactic acid 1.3, proBNP 491, and glucose 149. Patient started on IV steroids, bronchodilators. Pulmonology consulted. Respiratory symptoms improved with steroids and bronchodilators. Patient agree that her COPD is at a very advanced stage, and wants to go home on hospice. Home hospice arranged. Patient seen and examined at bedside. Vital signs reviewed and stable. General: Nontoxic, no distress, appears at stated age Derm: Warm, dry Head: Atraumatic, normocephalic, symmetric Eyes: EOMI, no lid lag, anicteric sclera Mouth: No lip lesion, mucus membranes moist Cardiovascular: S1S2 reg, no murmur Lungs: CTA bilateral, no rhonchi, no rales, no accessory muscle use, supplemental oxygen Abdominal: Soft, nontender to palpation, no guarding, no appreciable organomegaly Ext: No gross muscle atrophy, no edema, no contractures Neuro: CN II-XI grossly intact, no focal neuro deficits Psych: Alert, oriented, appropriate affect A total of 33 minutes of time were spent preparing this complex discharge summary. Patient was discharged on 07/19/2023 at 1316. Patient Condition at Discharge: Stable Plan - Discharge Summary Discharge Rx Participant: No New Discharge Prescriptions: New predniSONE [Deltasone] 40 mg PO DAILY #6 tab Continue carvediloL [Coreg] 6.25 mg PO BID Atorvastatin [Lipitor] 80 mg PO DAILY Fluticasone Nasal [place] [Flonase Nasal [place]] 1 - 2 spr EA NOSTRIL BID PRN PRN Reason: Allergy Symptoms Albuterol Inhaler [Ventolin Hfa Inhaler] 2 puff INHALATION RT-QID PRN PRN Reason: Shortness Of Breath Fluticasone/Umeclidin/Vilanter [Trelegy Ellipta 100-62.5-25] 1 puff INHALATION RT-DAILY Aspirin 81 mg PO DAILY Discontinued Budesonide/Formoterol Fumarate [Symbicort 160-4.5 Mcg Inhaler] 2 puff INHALATION RT-BID Tiotropium Tiona [Spiriva] 2 puff INHALATION RT-DAILY@1300 Discharge Medication List Atorvastatin [Lipitor] 80 mg PO DAILY 12/04/19 [History] carvediloL [Coreg] 6.25 mg PO BID 12/04/19 [History] Albuterol Inhaler [Ventolin Hfa Inhaler] 2 puff INHALATION RT-QID PRN 04/30/23 [History] Fluticasone Nasal [place] [Flonase Nasal [place]] 1 - 2 spr EA NOSTRIL BID PRN 04/30/23 [History] Fluticasone/Umeclidin/Vilanter [Trelegy Ellipta 100-62.5-25] 1 puff INHALATION RT-DAILY 04/30/23 [History] Aspirin 81 mg PO DAILY 07/18/23 [History] predniSONE [Deltasone] 40 mg PO DAILY #6 tab 07/19/23 [Rx] Follow up Appointment(s)/Referral(s): Jackson Valencia MD [REFERRING] - 1-2 Days Patient Instructions/Handouts: COPD (Chronic Obstructive Pulmonary Disease) (DC) Discharge Disposition: HOME WITH HOSPICE
[2023-07-19] MEDS: ENOXAPARIN 40 MG/0.4 ML SYRINGE SQ SCH (13:31)
[2023-07-19 14:35] VITALS: BP 107/68; PULSE 105; RESP 18; TEMP 97.9
[2023-07-20] MEDS ORDERED: ENOXAPARIN 40 MG/0.4 ML SYRINGE SQ SCH (09:00)
== END 2023-07-19 16:28 | disposition hospice, home (50) | DRG 190 ==
LOC: EC 21:43 → 3SCARD 23:17 → 5NMEDONC 07-18 12:14
PROVIDERS: ADMIT Internal Medicine; ATTEND Internal Medicine
DX: J44.1 Chronic obstructive pulmonary disease with (acute) exacerbation (principal); J96.21 Acute and chronic respiratory failure with hypoxia; Z99.81 Dependence on supplemental oxygen; E78.5 Hyperlipidemia, unspecified; I10 Essential (primary) hypertension; Z51.5 Encounter for palliative care; Z28.310 Unvaccinated for COVID-19; I25.10 Atherosclerotic heart disease of native coronary artery without angina pectoris; I49.3 Ventricular premature depolarization; M19.041 Primary osteoarthritis, right hand; M19.042 Primary osteoarthritis, left hand; I25.2 Old myocardial infarction; Z79.51 Long term (current) use of inhaled steroids; Z79.82 Long term (current) use of aspirin; Z79.899 Other long term (current) drug therapy; Z87.891 Personal history of nicotine dependence; Z86.16 Personal history of COVID-19; Z87.440 Personal history of urinary (tract) infections; Z88.6 Allergy status to analgesic agent; Z82.5 Family history of asthma and other chronic lower respiratory diseases
CPT/HCPCS: 36415; 71046; 80048; 80053; 83036; 83605; 83735; 83880; 84145; 85025; 85027; 85610; 85730; 87040; 93005; 94640; 94760; 96365; 96366; 96375; 96376; 99291